=== PATIENT | male | born 1945 | race Caucasian/White ===

== ENCOUNTER → 2018-07-09 | Outpatient (CLI) | payer BC ==
[~2018-07-09] MED LIST: ADVIN25/60 INH; ASPCH81X PO; CHOL2000 PO; DICL-201 PO; NRV/5 PO; TIOTCAP INH; VNTHFA/IN INH
--- NOTE | 2018-07-09 12:01 | DIAGNOSTIC IMAGING REPORT ---
CHEST 2 VIEWS ROUTINE CLINICAL HISTORY: Preoperative evaluation. COMPARISON STUDY: Chest radiograph October 23, 2016. FINDINGS: Mild lung hyperexpansion is noted with flattening of the hemidiaphragms. Spinal fusion hardware is partially imaged. Linear bilateral opacities represent atelectasis or scarring. There is no pneumothorax or pleural effusion. Slight interstitial prominence is likely chronic. There is no evidence for pulmonary edema or pneumonia. Mild cardiomegaly is noted. IMPRESSION: 1. No acute cardiopulmonary findings. 2. Mild cardiomegaly. 3. Mild lung hyperexpansion. Electronically signed by: Kiko Cameron M.D. 07/09/2018 12:00 PM Dictated Date/Time: 07/09/2018 11:58 AM
[2018-07-09 13:24] LABS: BASO % 0.4 %; BASO ABS # 0.03 K/uL (0-0.2); EOS % 2.3 %; EOS ABS # 0.16 K/uL (0-0.5); HEMATOCRIT 46.6 % (42-52); IG# 0.02 K/uL (0.00-0.02); LYMPH % 17.6 %; LYMPH ABS # 1.24 K/uL (1.2-3.4); MEAN CELL VOLUME 92.8 fL (80-100); MEAN CORPUSCULAR HEMOGLOBIN 31.9 pg (25-34); MEAN CORPUSCULAR HGB CONC 34.3 g/dl (32-36); MEAN PLATELET VOLUME 9.3 fL (7.4-10.4); MONO % 7.1 %; NEUT % 72.3 %; NEUT ABS # 5.08 K/uL (1.4-6.5); PLATELET COUNT 193 K/uL (130-400); RED CELL DISTRIBUTION WIDTH CV 14.2 % (11.5-14.5); RED CELL DISTRIBUTION WIDTH SD 48.1 fL (36.4-46.3); WHITE BLOOD COUNT 7.03 K/uL (4.8-10.8)
[2018-07-09 13:42] LABS: PTT PATIENT 26.8 SECONDS (21.0-31.0)
[2018-07-09 14:36] LABS: BLOOD UREA NITROGEN 20 mg/dl (7-18); CALCIUM 8.9 mg/dl (8.5-10.1); CARBON DIOXIDE 28 mmol/L (21-32); CREATININE 0.92 mg/dl (0.60-1.40); GLUCOSE 105 mg/dl (70-99); SODIUM 140 mmol/L (136-145)
== END | disposition home or self-care (01) ==
LOC: C.CPL 10:52
PROVIDERS: ATTEND Orthopaedic Surgery Sports Medicine
DX: Z01.818 Encounter for other preprocedural examination (principal)

== ENCOUNTER 2021-02-13 05:04 | Inpatient (IN) ==
--- NOTE | 2021-02-01 10:31 | Anesthesiology Consultation ---
Date of Service February 01, 2021 Assessment & Plan (1) Encounter for pre-operative examination: - COVID screening: Per assessment on 01/31: Travel screen- Lives in [facility]. No travel x 2+ weeks (prior travel to [facility] to visit daughter 2+ weeks ago). Patient was personally COVID positive 09/28/20- symptoms at time were body aches, dyspnea, mild fever > recovered to baseline. No known COVID-19 positive contacts or current COVID-19 related symptoms. Surgeon arranging preop COVID testing. Awaiting results. - PCP office visit: 11/20/20: Patient seen for preop recommendations for upcoming total hip replacement. Patient will be referred to hosted services analyst and after school program assistant for preoperative clearance." - Chest CT: 10/17/20: Central lobar emphysema. Bibasilar atelectasis. No acute pulmonary disease. - Pulmonary office visit: 10/17/20: "From a Pulmonary standpoint, he can proceed with plans for total hip arthroplasty. He is at an increased risk for perioperative pulmonary complications but this risk is not prohibitive." - Cardiology office visit: 12/12/20: "Patient is very limited in his activity.. he has to walk with a cane.. Clinically is appears his cardiac status is stable.. his EKG is unremarkable.. I will check echocardiogram to assess the LV function and valvular structures.. if good EF.. no wall motion abnormalities or valvular heart disease.. patient is cleared for the surgery from a cardiac standpoint.. he will be low cardiac risk." ECHO done 12/14/20 (EF 60%, no RWMA or significant valvular disease) - ASA instructions per surgeon/prescriber Chart Review Chart Review: Acceptable Risk for Surgery (pending evaluation AM DOS) and Patient NOT seen in Pre Admission Testing History Surgery Operation Date: 02/13/21 08:50 Proposed Procedures p Left Total Hip Arthroplasty - Rafael Owens DO Height/Weight Height: 6 ft 2 in Weight: 129.727 kg Allergies Allergy/AdvReac Type Severity Reaction Status Date / Time atorvastatin AdvReac Intermediate myalgias Verified 01/31/21 11:51 Medications Home Medications Medication Instructions Recorded Confirmed Last Taken amlodipine 5 mg PO QAM #0 12/08/14 01/31/21 07/29/18 04:00 cholecalciferol (vitamin D3) 2,000 unit PO QAM 90 Days #90 cap 11/22/15 01/31/21 07/29/18 08:00 aspirin 81 mg PO PM #0 06/29/18 01/31/21 07/23/18 albuterol sulfate 1 inh INHALATION QID PRN 11/16/20 01/31/21 Unknown [id number] 1 inh INHALATION QAM 11/16/20 01/31/21 Unknown [Trelegy Ellipta] Potassium Otc 2 tab PO BID 01/31/21 01/31/21 Unknown ibuprofen 800 mg PO TID PRN 01/31/21 01/31/21 Unknown Past Medical History Medical History BPH (benign prostatic hyperplasia) Chronic back pain Chronic obstructive pulmonary disease stable History of COVID-19 dx 09/28/20 ([facility]), body aches, dyspnea, mild fever > recovered to baseline Obesity On home oxygen therapy 3L/MIN NC PRN (uses often) Osteoarthritis Past Surgical History Surgical History H/O colonoscopy H/O hemorrhoidectomy History of cardiac cath 2012 (for abnormal stress test) > no stents History of herniorrhaphy History of repair of rotator cuff Left History of tooth extraction History of total hip arthroplasty R MARYELLEN, plus revision Previous back surgery L2-L3 decompression/fusion L1-L2 decomp, T12-L2 fusion (2015) S/P TURP Social History Smoking Status: Former smoker tobacco type: cigarettes Do You Dip or Chew Tobacco: No Smoking End Date: 2007 Hx Alcohol Use: Yes Alcohol type: beer, wine and hard liquor alcohol intake frequency: a few times a week Hx Substance Use: No substance use type: does not use Testing Laboratory Results 01/29/21 WBC 5.9 H/H 16.1/47.8 PLATELETS 180 SODIUM 141 POTASSIUM 3.8 CHLORIDE 105 CO2 32 BUN 18 CREATININE 0.9 GLUCOSE 92 HGBA1C 5.7% PT 10.5 PTT 24 INR 1.05 UA negative Electrocardiogram Date: 12/14/20 SR at 75bpm. Chest X-Ray Date: 11/22/20 FINDINGS: The heart is the upper limits of normal in size. There is subtle nonspecific interstitial thickening. This could represent mild pulmonary vascular congestion or a subtle interstitial infectious/inflammatory process. There is stable hilar prominence. There is no focal pulmonary consolidation. IMPRESSION: Subtle nonspecific interstitial thickening. No evidence of focal pulmonary consolidation Echocardiogram Date: 12/14/20 EF 60%. No RWMA. No significant valvular disease. Stress Test Date: 02/22/13 Type: nuclear Resting EF: 64 There is slightly decreased activity in the inferior wall myocardium during stress. This was normally perfused at rest. The remainder of the myocardium is normally perfused and the ventricular chamber is not dilated. On the gated images there is suggestion of mildly diminished wall motion in the inferior wall. The remainder of the myocardium moves normally. Subsequent cardiac cath done 03/01/13 revealing normal coronary arteries* Cardiac Catheterization Date: 03/01/13 Angiographically normal coronary arteries. EF 55%. Risk factor modification recommended.
--- NOTE | 2021-02-10 09:09 | History & Physical Report ---
Date of Service February 13, 2021 Assessment & Plan (1) Degenerative joint disease of left hip: I have indicated the patient for left total hip replacement. The risks, benefits and complications of surgery were explained to the patient which include but not limited to infection, acute blood loss, DVT/PE, injury to nerves, vessels, bone, soft tissue, arthrofibrosis, chronic pain, failure of the prosthesis, hip dislocation, leg length discrepancy, need for additional surgery, cardiac and pulmonary events and . The patient wished to proceed with surgery and informed consent was obtained at this time. We will plan for 81mg ASA BID post-operatively for DVT prophylaxis. Upon discharge the patient will be discharged home with home health services. Appropriate clearances by PCP, cardiology were obtained. History of Present Illness Chief Complaint: Left hip pain/DJD Primary Care Provider: Julieta Humphries The patient is a 75 year old male who presents with complaints of severe left hip pain and DJD. The patient has failed outpatient conservative treatments to this point which included NSAIDs, activity modification, home exercise/walking program. The patient's pain and limited function have progressed to the point where they severely hinder their activities of daily living and they no longer tolerate exercise programs. They are requesting to proceed with total hip replacement surgery. Allergies Allergy/AdvReac Type Severity Reaction Status Date / Time atorvastatin AdvReac Intermediate myalgias Verified 02/13/21 05:44 Home Medications Medication Instructions Recorded Confirmed Type amlodipine 5 mg PO QAM #0 12/08/14 02/13/21 History cholecalciferol (vitamin D3) 2,000 unit PO QAM 90 Days #90 cap 11/22/15 02/13/21 History aspirin 81 mg PO PM #0 06/29/18 02/13/21 History albuterol sulfate 1 inh INHALATION QID PRN 11/16/20 02/13/21 History [id number]-[id number] 1 inh INHALATION QAM 11/16/20 02/13/21 History [Trelegy Ellipta] Potassium Otc 2 tab PO BID 01/31/21 02/13/21 History ibuprofen 800 mg PO TID PRN 01/31/21 02/13/21 History Past Med/Surg History Medical History BPH (benign prostatic hyperplasia) Chronic back pain Chronic obstructive pulmonary disease stable History of COVID-19 dx 09/28/20 ([facility]), body aches, dyspnea, mild fever > recovered to baseline Obesity On home oxygen therapy 3L/MIN NC PRN (uses often) Osteoarthritis Surgical History H/O colonoscopy H/O hemorrhoidectomy History of cardiac cath 2012 (for abnormal stress test) > no stents History of herniorrhaphy History of repair of rotator cuff Left History of tooth extraction History of total hip arthroplasty R MARYELLEN, plus revision Previous back surgery L2-L3 decompression/fusion L1-L2 decomp, T12-L2 fusion (2015) S/P TURP Social History Smoking Status: Former smoker Smoking End Date: 2007; Second Hand Exposure: Yes ("EVERYBODY SMOKED"); Do You Dip or Chew Tobacco: No; Hx Alcohol Use: Yes Alcohol type: beer, wine and hard liquor Hx Substance Use: No Preferred Language: Greenlandic Communication Ability: Effective Drilling Engineering Manager Required: No Beliefs That Will Affect Care: None marital status: Current Living Situation: Spouse Other Information That Helps Us Care for You: No Feels Safe at Home: Yes Safety Concerns: Feels Safe At This Time Assistive Devices: Cane, Denture - Upper, Denture - Lower, Glasses and Oxygen - Continuous Review of Systems Review of Systems: All systems reviewed & are unremarkable except as noted in HPI & below Constitutional: as per Subjective / HPI Physical Exam Physical Exam: LLE NVSI +EHL/FHL/TA/GS SILT grossly, +2 DP pulse, compartments soft NT, limited painful ROM of the hip, antalgic gait. Constitutional: WD/WN, vitals as above Eyes: PERRL, conjunctivae normal, anicteric sclerae ENMT: external ear and nose normal, oropharynx normal Neck: trachea midline, no thyromegaly Respiratory: normal respiratory effort, lungs clear to auscultation Cardiovascular: RRR, no murmur, no edema Gastrointestinal (Abdomen): normal bowel sounds, soft, nontender, no hepatosplenomegaly Musculoskeletal: no cyanosis or clubbing, extremities motor strength 5/5 Skin: no rashes, warm and dry Neurologic: patellar DTR's 2+ bilat, sensation intact Psychiatric: A+Ox3, euthymic affect Lymphatic: no cervical or axillary lymphadenopathy Results & Data Results & Data ([facility]) Diagnostic Findings Multiple views of the hip demonstrates severe DJD with complete loss of the joint space. +osteophytes, +sclerosis, +subchondral cysts.
[2021-02-13] MEDS ORDERED: METOCLOPRAMIDE HCL 10 MG TABLET PO SCH (06:00)
[2021-02-13] MEDS ORDERED: ACETAMINOPHEN 500 MG TAB PO SCH (06:00)
[2021-02-13] MEDS ORDERED: GABAPENTIN 300 MG CAP PO SCH (06:00)
[2021-02-13] MEDS ORDERED: LR 500ML BOLUS, THEN 15ML/HR IV SCH (06:00)
[2021-02-13] MEDS ORDERED: FAMOTIDINE 20 MG TAB PO SCH (06:00)
[2021-02-13] MEDS ORDERED: CeleBREX 200 MG CAP PO SCH (06:00)
[2021-02-13] MEDS ORDERED: TRANEXAMIC ACID 1,000 MG **IV Pre-op IV SCH (06:00)
[2021-02-13] MEDS ORDERED: ROPIVACAINE 0.5% HCL/PF 150 MG, BUPIVACAINE 0.75% MPF 20 ML, EPINEPHrine 30MG/30ML (OR ... INFIL SCH (06:00)
[2021-02-13] MEDS ORDERED: dexAMETHasone 4 MG TAB PO SCH (06:00)
[2021-02-13] MEDS ORDERED: TRANEXAMIC ACID 1,000 MG **IV Intra-op IV SCH (06:00)
[2021-02-13] MEDS ORDERED: BUPIVACAINE 0.5 % 5 MG/1 ML PF 10ML VIAL ONE (06:21)
[2021-02-13] MEDS ORDERED: MIDAZOLAM HCL 1 MG/ML 2ML VIAL ONE (06:23)
[2021-02-13] MEDS ORDERED: fentaNYL citrate 100 MCG/2 ML VIAL ONE (06:23)
[2021-02-13] MEDS ORDERED: ORTHO JOINT ANESTHETIC ONE (06:43)
[2021-02-13] MEDS ORDERED: BACITRACIN INJ 50,000 UNIT VIAL ONE (06:44)
--- NOTE | 2021-02-13 06:45 | History & Physical Bridge Note ---
Date of Service February 13, 2021 History & Physical Bridge Note I have examined the patient, reviewed the History & Physical and in the interval since the performance of the History & Physical I have noted the following changes of clinical significance: no changes noted
[2021-02-13] MEDS ORDERED: ePHEDrine sulfate 50 MG/ML AMP IV PRN (07:10)
[2021-02-13] MEDS ORDERED: ONDANSETRON INJ 2 MG/ML 2 ML VIAL IV PRN ×2 (07:10→11:19)
[2021-02-13] MEDS ORDERED: fentaNYL citrate 100 MCG/2 ML VIAL IV PRN (07:10)
[2021-02-13] MEDS ORDERED: ATROPINE SULFATE 0.1 MG/ML 10ML SYR IV PRN (07:10)
[2021-02-13] MEDS ORDERED: SUCCINYLCHOLINE 100MG/5ML SYR IV ONE (07:42)
[2021-02-13] MEDS ORDERED: PROPOFOL IV EMULSION 10 MG/ML 20 ML VIAL IV ONE ×2 (07:42→07:44)
[2021-02-13] MEDS ORDERED: DEXAMETHASONE SOD INJ 4 MG/ML VIAL ONE (07:46)
[2021-02-13] MEDS ORDERED: ALBUTEROL HFA INHALER 8.5 GM ONE (07:46)
[2021-02-13] MEDS ORDERED: ONDANSETRON INJ 2 MG/ML 2 ML VIAL ONE (07:46)
[2021-02-13] MEDS ORDERED: ePHEDrine sulfate 50 MG/ML SYR ONE (07:58)
--- NOTE | 2021-02-13 09:23 | Post Operative Brief Note ---
Immediate Post Op Note v1 Date of Surgery February 13, 2021 Pre & Post Diagnosis Operation Date: 02/13/21 07:00 Pre-Op Diagnosis: Osteoarthritis Left Hip Post-Op Diagnosis: Osteoarthritis Left Hip I identified the patient and participated in the time-out.: Yes Procedure Operation Date: 02/13/21 07:00 Actual Procedures p Left Total Hip Arthroplasty(Left) - Rafael Owens DO Surgeon Rafael Owens DO Mattress Finisher Joseph Warner Estimated Blood Loss 275 Findings Consistent with Post-Op Diagnosis Fluids See anesthesia report Specimens Femoral head Drains Hemovac Drain (10fr dual) Anesthesia Type General Complications none Disposition Disposition: Recovery Room Overlapping Procedure I was present for: the critical portions of procedure. I was immediately available: during the entire case. Back up surgeon: was not required during procedure.
--- NOTE | 2021-02-13 09:26 | Operative Report ---
Post Operative Report Pre & Post Diagnosis Operation Date: 02/13/21 07:00 Pre-Op Diagnosis: Osteoarthritis Left Hip Post-Op Diagnosis: Osteoarthritis Left Hip I identified the patient and participated in the time-out.: Yes Procedure Operation Date: 02/13/21 07:00 Actual Procedures p Left Total Hip Arthroplasty(Left) - Rafael Owens DO Surgeon Rafael Owens DO Saw Feeder Joseph Warner Estimated Blood Loss 275 Findings Consistent with Post-Op Diagnosis Fluids See anesthesia report Specimens Femoral head Drains Hemovac drain deep to fascia Anesthesia Type General Complications none Disposition Disposition: Recovery Room Indications The patient is a 71-year-old man who presents with severe progressive left hip DJD who has failed outpatient conservative treatments. I indicated the patient for a total hip replacement and the risks and benefits were explained in detail which included but not limited to infection, bleeding, blood clot, damage to surrounding bone, nerves, vessels, soft tissue, hip dislocation, failure of the prosthesis, leg length discrepancy, need for additional surgery and . The patient agreed to proceed with replacement of the hip and informed consent was obtained. Appropriate clearances were obtained. Description of Procedure COMPONENTS USED: Alex Biomet hip system: Acetabulum size 58 G7 osteo-Ti, Avenir femur size 7 standard offset, femoral head 36-3.5, liner 58x36, acetabular screw 30 mm x 1. Following induction of adequate spinal anesthesia, the patient was transferred to the OR table and placed in lateral decubitus position with right hip down. The left hip was prepped and draped in the typical sterile fashion. A timeout was performed, patient identified and site david confirmed. Appropriate antibiotics were given. A standard posterolateral/Alma-Langenbeck incision was made. Subcutaneous tissue was sharply dissected. Electrocautery was utilized for hemostasis. The fascia was incised throughout the length of the wound and retracted with the Charnley retractor. The bursa was taken down and the short external rotators were identified. The piriformis was tagged with #1 Vicryl. The short external rotators and capsule were divided from the posterior aspect of the femur using electrocautery. The posterior capsule was tagged with #1 Vicryl. Both external rotators and posterior capsule were swept posterior and protected, along with protecting the sciatic nerve. The hip was dislocated by flexion and internally rotation in a controlled manner and exposure of the femoral neck was gained with an old-style Hohmann and a blunt cobra retractor. A femoral cutting guide was utilized for making the appropriate level femoral neck cut with reciprocating saw. The femoral head was removed, measured and reserved on the back table. Next, attention was turned to the acetabulum. A posterior and anterior offset retractor was placed to gain adequate exposure. Acetabular labrum as well as posterior capsule elements were removed using electrocautery and forceps. Fovea centralis was cleared of all soft tissue. Sequential reaming was performed starting at 46 mm and carried up to a 57 mm and decision was made to proceed with impaction of a 58 mm G7 Osteo-Ti cup. This was impacted and held using a single 30 mm acetabular screw. The trial acetabular liner was placed at this time. Next, attention was turned to the proximal femur where a Bovie and pickup was used to further clear short exte rnal rotators from their insertion on the femur. Box osteotome and canal finder was used to gain access to the femoral canal and the lateral reamer on power was used to further open the proximal lateral canal. Sequentially rasping was carried up to a 9 which gave good fit and fill of the proximal femur. A trial reduction was carried out with a standard offset femoral neck component a 36-3.5 mm femoral head. The trial reduction was stable in all degrees of rotation with no [id number] impingement. The hip was dislocated, trial components were removed and access to the acetabulum was re-established. The trial liner was removed and the cup was irrigated to ensure all debris was removed. The final acetabular liner was inserted and properly seated in the cup. Access to the femur was once more gained and the size 9 femoral stem with standard offset was impacted into position. The hip was once more assessed with the 36-3.5 mm femoral head. Stability was accessed and found to be excellent with equal leg lengths. The hip was dislocated for the last time and the final 36-3.5 ceramic femoral head was impacted in place and the hip was reduced. Range of motion was checked once again and found to be stable. A Betadine soak was performed. After 3 minutes, the hip was once more irrigated with copious sterile saline solution with bacitracin. The francine-incisional soft tissue was injected utilizing [place] ortho mix which includes a combination of Ropivicaine 0.5% 150mg, Bupivicaine 0.5%/Epinephrine 1:200,000 30ml, Toradol 30mg, Dexamethasone 4mg, Ketamine 10mg, Clonidine 100mcg and NSS 30ml Orthomix solution. The piriformis, external rotators and capsule were repaired to the greater trochanter through bone tunnels using #5 FiberWire. Hemovac drain was placed deep to fascia. The fascia was closed using #1 Vicryl, subcutaneous tissue was closed using 2-0 Vicryl, and skin was closed with sloan and a sterile dry dressing was applied which included Robyn incisional VAC, drain sponge, and tape The patient tolerated the procedure well and was transported to PACU in stable condition. Due to the complex nature of the procedure, the entire surgery was performed with the operational assistance of Joseph Warner PA-C. The surgeon assistant, under direct supervision, was involved in the actual performance of all aspects of the surgical procedure including patient positioning, hemostasis, tissue retraction, instrument management and wound closure. I attest to the content of the Intraoperative Record and any orders documented therein. Any exceptions are noted below.
--- NOTE | 2021-02-13 10:22 | XRay Report ---
XR hip 1V LT w pelvis HISTORY: 75 years-old Male IN PACU - A/P PELVIS and LATERAL HIP left hip total joint arthroplasty COMPARISON: CT abdomen and pelvis 10/29/2016 TECHNIQUE: AP view the pelvis with crosstable lateral view of the left hip FINDINGS: Bilateral hip total joint arthroplasties. The new left hip arthroplasty demonstrates satisfactory ali gnment without acute fracture. Expected postoperative soft tissue swelling and deep tissue air with s urgical drainage catheter. Posterior interbody otis and screw fusion with discectomy changes of the alfredo mbar spine and sacrum. IMPRESSION: Left hip total joint arthroplasty with expected postoperative changes. ACT 112: Negative or not required by law. The above report was generated using voice recognition software. It may contain grammatical, syntax o r spelling errors. Electronically signed by: Guanako Beck M.D. 02/13/2021 10:20 AM
[2021-02-13] MEDS ORDERED: diphenhydrAMINE Capsule 25 MG CAP PO PRN (11:19)
[2021-02-13] MEDS ORDERED: bisacodyL 10 MG SUPP PR PRN (11:19)
[2021-02-13] MEDS ORDERED: ALBUTEROL HFA 8 GM INHALER INH PRN (11:19)
[2021-02-13] MEDS ORDERED: MAGNESIUM HYDROXIDE SUSP 30 ML UDC PO PRN (11:19)
[2021-02-13] MEDS ORDERED: METOCLOPRAMIDE HCL INJ 5 MG/ML 2 ML VIAL IV PRN (11:19)
[2021-02-13] MEDS ORDERED: NALOXONE HCL 0.4 MG/1 ML VIAL/CARP IV PRN (11:19)
[2021-02-13] MEDS: HYDROmorphone INJ 0.5 MG/0.5 ML SYR IV PRN ×3 (11:49→23:37)
[2021-02-13] MEDS: oxyCODONE HCL IR 5 MG TAB (IMMEDIATE RELEASE) PO PRN ×2 (13:53→19:51)
[2021-02-13] MEDS: ACETAMINOPHEN 500 MG TAB PO SCH ×2 (13:53→21:58)
[2021-02-13] MEDS: SODIUM CHLORIDE 0.9% 1000ML 1,000 ML IV SCH ×2 (13:54→23:49)
[2021-02-13] MEDS: ceFAZolin 2000MG 2,000 MG/15 ML SYR IV SCH ×2 (16:12→23:37)
--- NOTE | 2021-02-13 17:32 | Anesthesiology Progress Note ---
Date of Service February 13, 2021 Anesthesia Post Procedure Vital Signs Vital Signs: Temp Pulse Pulse Resp BP BP Pulse Ox 02/13/21 15:46 36.6 C 74 16 142/70 H 90 02/13/21 14:00 76 14 128/67 93 02/13/21 13:00 36.4 C L 74 15 126/69 93 02/13/21 12:00 72 15 126/61 93 02/13/21 11:30 64 14 130/66 93 02/13/21 11:00 36.4 C L 70 14 116/67 92 02/13/21 10:45 71 13 117/64 94 02/13/21 10:30 36.4 C L 70 12 125/58 L 94 02/13/21 10:20 79 14 140/64 94 02/13/21 10:10 84 17 131/59 L 99 02/13/21 10:00 78 13 117/67 97 02/13/21 09:53 36.2 C L 83 14 139/69 99 02/13/21 05:46 36.8 C 69 20 141/71 H 95 Pain Intensity Left Hip: Pain Intensity: 5 Transfer of Care Handoff Completed per policy Notes Mental Status: alert / awake / arousable and participated in evaluation Patient Amnestic to Procedure: Yes Nausea / Vomiting: adequately controlled Pain: adequately controlled Airway Patency, RR, SpO2: stable & adequate BP & HR: stable & adequate Hydration State: stable & adequate Neuraxial Anesthesia: was administered and sensory block is resolving Anesthetic Complications: no major complications apparent and Pt Satisfied with anesthetic care
--- NOTE | 2021-02-13 19:29 | Orthopedic Progress Note ---
Date of Service February 13, 2021 Assessment & Plan (1) Degenerative joint disease of left hip: s/p left MARYELLEN -ancef -DVT ppx: SCDs, TEDs, 81mg ASA BID -WBAT LLE -PT/OT -PO XR demonstrates a well aligned well fixed prothesis without fracture/dislocation -am labs -DC planning Admission and Anticipated Discharge Date Admission Date: February 13, 2021 Subjective Post Operative Progress Note Patient seen sitting in chair at bedside, comfortable, denies complaints, pain well controlled, no acute issues. Review of Systems Review of Systems: All systems reviewed & are unremarkable except as noted in HPI & below Constitutional: as per Subjective / HPI Physical Exam Physical Exam: LLE NVSI +EHL/FHL/TA/GS SILT grossly, +2 DP pulse, compartments soft NT, dressing cdi. Constitutional: WD/WN, vitals as above Results & Data ([facility]) Vital Signs (Past 12 Hours) Vital Signs Temp Pulse Pulse Resp BP BP Pulse Ox 02/13/21 15:46 36.6 C 74 16 142/70 H 90 02/13/21 14:00 76 14 128/67 93 02/13/21 13:00 36.4 C L 74 15 126/69 93 02/13/21 12:00 72 15 126/61 93 02/13/21 11:30 64 14 130/66 93 02/13/21 11:00 36.4 C L 70 14 116/67 92 02/13/21 10:45 71 13 117/64 94 02/13/21 10:30 36.4 C L 70 12 125/58 L 94 02/13/21 10:20 79 14 140/64 94 02/13/21 10:10 84 17 131/59 L 99 02/13/21 10:00 78 13 117/67 97 02/13/21 09:53 36.2 C L 83 14 139/69 99
[2021-02-13] MEDS: DOCUSATE SODIUM 100 MG CAP PO SCH (19:52)
[2021-02-13] MEDS ORDERED: SENNA 8.6 MG TAB PO SCH (21:00)
[2021-02-14] MEDS: ACETAMINOPHEN 500 MG TAB PO SCH ×2 (06:06→14:53)
[2021-02-14] MEDS: oxyCODONE HCL IR 5 MG TAB (IMMEDIATE RELEASE) PO PRN ×3 (06:10→15:36)
[2021-02-14 06:19] LABS: Hematocrit (blood only) 34.3 % (42-52); Hemoglobin 11.9 g/dL (14.0-18.0); Immature Granulocytes # (auto) 0.02 K/uL (0.00-0.02); Immature Granulocytes % (auto) 0.1 %; Lymphocytes # (auto) 0.99 K/uL (1.2-3.4); Lymphocytes % (auto) 7.4 %; Mean Corpuscular Hemoglobin 31.2 pg (25-34); Mean Corpuscular Hgb Conc 34.7 g/dL (32-36); Mean Platelet Volume 8.9 fL (7.4-10.4); Monocytes # (auto) 0.68 K/uL (0.11-0.59); Monocytes % (auto) 5.1 %; Neutrophils # (auto) 11.66 K/uL (1.4-6.5); Neutrophils % (auto) 87.4 %; Platelet Count 187 K/uL (130-400); RDW Coefficient of Variation 13.6 % (11.5-14.5); RDW Standard Deviation 45.2 fL (36.4-46.3); Red Blood Count 3.81 M/uL (4.7-6.1); White Blood Count 13.35 K/uL (4.8-10.8)
[2021-02-14 06:47] LABS: BUN Creatinine Ratio 25.1 (10-20); Calcium 7.9 mg/dl (8.5-10.1); Creatinine Clr Calc Pharmacy 90.1 ml/min; Est GFR (African American) 83.5; Est GFR (Non-African American) 72.1; Potassium 4.4 mmol/L (3.5-5.1)
[2021-02-14] MEDS ORDERED: amLODIPine BESYLATE 5 MG TAB PO SCH (09:00)
[2021-02-14] MEDS ORDERED: MULTIVITAMIN TAB PO SCH (09:00)
[2021-02-14] MEDS ORDERED: UMECLIDINIUM/VILANTEROL 62.5/25MCG 7 PUFFS/INHALER INH SCH (09:00)
[2021-02-14] MEDS ORDERED: FLUTICASONE FUROATE 100MCG 14 PUFFS/INHALER INH SCH (09:00)
[2021-02-14] MEDS ORDERED: ASPIRIN 81 MG ECTAB PO SCH (09:00)
[2021-02-14] MEDS: DOCUSATE SODIUM 100 MG CAP PO SCH (09:08)
--- NOTE | 2021-02-14 10:52 | Orthopedic Progress Note ---
Date of Service February 14, 2021 Assessment & Plan (1) Degenerative joint disease of left hip: s/p left MARYELLEN POD#1 -ancef -DVT ppx: SCDs, TEDs, 81mg ASA BID -WBAT LLE -PT/OT -PO XR demonstrates a well aligned well fixed prothesis without fracture/dislocation -am labs - as above, hgb 11.9 -Drain fell out overnight, drain site cdi. -DC planning - home with Admission and Anticipated Discharge Date Admission Date: February 13, 2021 Subjective Post Operative Progress Note Patient seen sitting up in bed, comfortable, denies complaints, pain well controlled, no acute issues. Denies F/C/N/V/SOB/CP. Review of Systems Review of Systems: All systems reviewed & are unremarkable except as noted in HPI & below Constitutional: as per Subjective / HPI Physical Exam Physical Exam: LLE NVSI +EHL/FHL/TA/GS SILT grossly, +2 DP pulse, compartments soft NT, dressing cdi. Constitutional: WD/WN, vitals as above Results & Data ([facility]) Vital Signs (Past 12 Hours) Vital Signs Temp Pulse Pulse Resp BP BP Pulse Ox 02/14/21 09:00 64 126/62 02/14/21 07:51 36.6 C 62 16 113/46 L 94 02/14/21 03:29 36.7 C 69 18 115/61 92 02/13/21 23:50 36.1 C L 74 18 140/71 91 Laboratory Results 02/14/21 02/14/21 02/14/21 Range/Units 06:03 06:03 06:03 WBC 13.35 H (4.8-10.8) K/uL RBC 3.81 L (4.7-6.1) M/uL Hgb 11.9 L (14.0-18.0) g/dL Hct 34.3 L (42-52) % MCV 90.0 (80-100) fL MCH 31.2 (25-34) pg MCHC 34.7 (32-36) g/dL RDW Std Deviation 45.2 (36.4-46.3) fL RDW Coeff of Richie 13.6 (11.5-14.5) % Plt Count 187 (130-400) K/uL MPV 8.9 (7.4-10.4) fL Immature Gran % (Auto) 0.1 % Neut % (Auto) 87.4 % Lymph % (Auto) 7.4 % [place] % (Auto) 5.1 % Eos % (Auto) 0.0 % Baso % (Auto) 0.0 % Neut # (Auto) 11.66 H (1.4-6.5) K/uL Lymph # (Auto) 0.99 L (1.2-3.4) K/uL [place] # (Auto) 0.68 H (0.11-0.59) K/uL Eos # (Auto) 0.00 (0-0.5) K/uL Baso # (Auto) 0.00 (0-0.2) K/uL Immature Gran # (Auto) 0.02 (0.00-0.02) K/uL Sodium 138 (136-145) mmol/L Potassium 4.4 (3.5-5.1) mmol/L Chloride 107 (98-107) mmol/L Carbon Dioxide 28 (21-32) mmol/L Anion Gap 3.0 (3-11) BUN 26 H (7-18) mg/dl Creatinine 1.02 (0.6-1.4) mg/dl Est Cr Clr Drug Dosing 90.1 ml/min Est GFR ( Amer) 83.5 Est GFR (Non-Af Amer) 72.1 BUN/Creatinine Ratio 25.1 H (10-20) Glucose 180 H (70-99) mg/dl Calcium 7.9 L (8.5-10.1) mg/dl Hepatitis C Ab Screen Neg (Neg)
--- NOTE | 2021-02-14 20:37 | Discharge Summary ---
Date of Service February 14, 2021 Admission HPI Per Admitting Provider The patient is a 75 year old male who presents with complaints of severe left hip pain and DJD. The patient has failed outpatient conservative treatments to this point which included NSAIDs, activity modification, home exercise/walking program. The patient's pain and limited function have progressed to the point where they severely hinder their activities of daily living and they no longer tolerate exercise programs. They are requesting to proceed with total hip replacement surgery. Principal Diagnosis Left total hip replacement Discharge Exam LLE NVSI +EHL/FHL/TA/GS SILT grossly, +2 DP pulse, compartments soft NT, dressing cdi. Constitutional WD/WN, vitals as above Discharge Data Allergies Allergy/AdvReac Type Severity Reaction Status Date / Time atorvastatin AdvReac Intermediate myalgias Verified 02/13/21 05:44 Procedures Performed Operation Date: 02/13/21 07:00 Actual Procedures p Left Total Hip Arthroplasty(Left) - Rafael Owens DO Hospital Course (1) Degenerative joint disease of left hip: The patient is a 75 -year-old female who presents with long standing history of severe left hip DJD and failed outpatient conservative treatments. The patient's symptoms have progressed to the point where it has been difficult to perform even normal activities of daily living. I indicated the patient for a left total hip arthroplasty, the risks, benefits and complications of the procedure include but not limited to infection, bleeding, damage to bone, nerves, vessels, surrounding soft tissue, may develop blood clots, loss of function, leg length discrepancy, dislocation, failure of the components, loosening of the components, the need for additional surgery and . The patient wished to proceed with surgery at this time and informed consent was obtained. Hospital Course: On 02/13/21 the patient was taken to the operating room, adequate anesthesia administered and underwent a left total hip arthroplasty. The patient tolerated the procedure well and was taken to the PACU in stable condition. Post-op eratively the patient was started on a DVT ppx medication and given appropriate IV antibiotics. Consults were placed to physical therapy, occupational therapy and case management. On POD#1, the patient did well overnight and their pain was well controlled. Labs were drawn and the Hgb was 11.9. The patient progressed well with PT. Dressings were changed at this time and the incision was clean, dry and intact. The patients hospital stay was relatively uneventful and they were deemed stable by the orthopedic team and consultants to be discharged home with HH on 02/14/21. Discharge Instructions: Upon discharge the patient may weight bear as tolerates through their operative extremity. They were instructed to keep the incision clean and dry at all times. The patient may shower but should not submerge the incision, avoid bathing, pools and hot tubs. The patient was given a script for pain medication and should take as instructed. The patient was given a script for DVT ppx 81mg ASA BID and should take as directed. The patient was instructed to not drive or travel for long distances until cleared to do so. If the patient develops any symptoms of fevers, chills, nausea, vomiting, increased redness, swelling, pain or drainage from the surgical site, they should notify the office and/or proceed to the nearest emergency room. The patient should follow up in 10-14 days after surgery for their routine post-operative follow-up appointment and should call the office, to confirm the date and time. s/p left MARYELLEN POD#1 -ancef -DVT ppx: SCDs, TEDs, 81mg ASA BID -WBAT LLE -PT/OT -PO XR demonstrates a well aligned well fixed prothesis without fracture/dislocation -am labs - as above, hgb 11.9 -Drain fell out overnight, drain site cdi. -DC planning - home with Total Time Total Time Spent Total Time Spent (In Minutes): 30 Discharge Plan Discharge Items Patient Disposition: Home - Home Health Services Reason For Visit: Osteoarthritis Left Hip Discharge Diagnosis: Left anterior total hip replacement Condition on Discharge: Good Activity: Per Instructions section Lifting: Wait until after follow-up appointment Bathing: Keep incision dry Bathing Comment: No bathing, pools or hot tubs. Sexual Activity: Wait until after follow-up appointment Exercise/Sports: Wait until after follow-up appointment Driving/Machine Use: No driving. Weightbearing: Full weightbearing Non-emergency contact: Primary Care Provider and Surgeon Call non-emergency contact if: you have any medication questions, your symptoms worsen, your pain is not controlled, your pain is worsening, your pain is unusual for you, your pain is concerning for you, you have a fever, your temperature is above 101, your wound has increased redness, your wound has increased drainage and your wound pain has increased Follow-up/Referrals: Julieta Humphries [Primary Care Provider] - (Your former PCP office has informed [place] that you have transferred to [facility]. Please schedule a follow up appt with your new PCP.) Diet: Regular Addtl Attending Provider Instructions: ACTIVITY RECOMMENDATIONS: SELF CARE INSTRUCTIONS AFTER TOTAL HIP REPLACEMENT : Direct Anterior Approach Until the incision and soft tissues around your hip have healed, there is a possibility that the hip prosthesis could dislocate. A. Hip flexion ( Up & Down out of chair or steps ) may be difficult. This is normal. B. Numbness in front of the thigh is also normal for a few weeks. C. Use hand rails when walking on stairs. D. Wear low heeled shoes with non-slip soles. E. Be sure that your floors are free of things that could trip you - throw rugs, electrical cords, small objects. Avoid wet and waxed floors, especially with crutches and canes. F. Try to walk several times a day with rest periods between. G. Continue with all the exercises taught to you in the hospital. Again, make walking a part of your daily routine. SPECIAL CARE INSTRUCTIONS: VERY IMPORTANT TO READ AND REVIEW A. You may still be at risk for phlebitis and blood clots. 1. Wear surgical stockings (MIKE hose) for 2 weeks after surgery to improve circulation and reduce swelling. 2. Take Aspirin 81mg twice daily for 4 weeks or as directed by your doctor. This is your blood thinner. 3. High risk patients may be prescribed a stronger blood thinner if necessary. 4. If you are on Coumadin normally, your family doctor/levelman should monitor your blood work. Expect a phone call the day of or the day after bloodwork is drawn to adjust your dosage. B. You must take antibiotics before having dental work, bladder, bowel and other surgery. Your doctor will provide you with a permanent card to carry describing precautions. C. Call [facility] [address] if you have a fever, redness or swelling around the incision, cloudy drainage from incision, or sudden increase in pain in your hip, not relieved by your regular pain medication. D. Please call the office at if you have any concerns or questions about your operation or recovery. * YOU MAY SHOWER, NO TUB BATHS UNTIL CLEARED BY YOUR DOCTOR. - Keep an extra close eye on the top portion of your incision. Be sure to keep clean & dry. * WEAR MIKE HOSE 20 HOURS PER DAY FOR 2 WEEKS. * YOU MAY PROGRESS FROM A WALKER, TO A CANE, TO INDEPENDENT AT YOUR OWN PACE. * MOST PATIENTS WILL HAVE HOME NURSING FOR THERAPY. IF YOU DECIDE TO DO OUTPATIENT PHYSICAL THERAPY, PLEASE SCHEDULE THIS 3 TIMES PER WEEK. *PREVENA incisional vac is a special dressing covering your incision. This dressing provides a sterile dry environment while you are healing. The dressing is to be left in place for 7 days post-operatively. Your home nurse or surgeon will remove. If you develop any redness or blisters or have any questions notify your surgeon immediately. FOLLOW UP VISIT: If appointment is not already scheduled: Please call [facility] [address] [address] to make a follow-up appointment for 2 weeks after your surgery at . Pending Studies at Discharge: No Stand-Alone Forms: My [facility] UEIS, Opioid Pain Management, Smoking Cessation Medications and DC Order Prescriptions: New aspirin 81 mg Tablet,Delayed Release (Dr/Ec) 81 mg PO BID Qty: 56 RF: 0 acetaminophen 500 mg Tablet 1,000 mg PO Q8 PRN (Reason: Pain/Fevers) Qty: 90 RF: 0 oxycodone 5 mg Tablet 5 mg PO Q6H MDD 4 PRN (Reason: pain) Qty: 30 RF: 0 sennosides [Senokot] 8.6 mg Tablet 17.2 mg PO HS PRN (Reason: constipation) Qty: 28 RF: 0 Continued amlodipine 5 mg Tablet 5 mg PO QAM Qty: 0 RF: 0 cholecalciferol (vitamin D3) 2,000 unit Capsule 2,000 unit PO QAM 90 Days Qty: 90 RF: 3 albuterol sulfate 90 mcg/actuation Hfa Aerosol Inhaler 1 inh INHALATION QID PRN (Reason: Wheezing) RF: 0 Trelegy Ellipta 100-62.5-25 mcg Blister With Device 1 inh INHALATION QAM RF: 0 Potassium Otc 2 tab PO BID RF: 0 Discontinued aspirin 81 mg Tablet,Chewable 81 mg PO PM Qty: 0 RF: 0 ibuprofen 800 mg Tablet 800 mg PO TID PRN (Reason: Pain) RF: 0 Discharge Orders: Discharge Order (Routine); Ordered 02/14/21 Ordered By: Rafael Nj/Other Patient Handouts: DVT Post Op Prevention Admission Data Admit Date/Time: 02/13/21 09:57 Attending Provider: Rafael Owens Admit Provider: Rafael Owens Primary Care Provider: Julieta Humphries Other Providers: [facility],Home Healthcare Other Interventions: Discharge Summary Assessment (RN) Last Done: 02/14/21 15:40
== END 2021-02-14 16:06 | disposition home health service (06) | DRG 470 ==
LOC: 3N 05:04 → ASU 05:04 → OBSVTOIN 09:57

== ENCOUNTER 2021-02-15 16:02 | Inpatient (IN) ==
--- NOTE | 2021-02-15 17:12 | Emergency Department Note ---
History of Present Illness General Chief complaint: Fall Stated complaint: FALLS, L HIP PAIN Time Seen by Provider: 02/15/21 16:11 History of Present Illness Provider complaint: Fall Onset (ago): day(s) 2 Location: lower extremity and left Severity: moderate Maximum Pain Intensity: 9 Current Pain Intensity: 8 Quality: + aching Relieved By: + immobilization Exacerbated By: + movement Associated symptoms: no chest pain, no cough, no diaphoresis, no fever/chills, no headaches, no nausea/vomiting, no rash, no shortness of breath and no syncope 75-year-old male presents emergency department with left hip and knee pain. Patient states he had a left hip replacement yesterday and fell yesterday. He said since then he has been having difficulty walking and fell again. Patient has hitting his head. Patient said he slid down. Patient denies any abdominal pain chest pain headache or neck pain. Patient states his pain is all in his left hip and left knee. Patient states he cannot walk because he feels like his hip and knee keep giving out on him. Home Medications Medication Instructions Recorded Confirmed Type amlodipine 5 mg PO QAM #0 12/08/14 02/15/21 History cholecalciferol (vitamin D3) 2,000 unit PO QAM 90 Days #90 cap 11/22/15 02/15/21 History Trelegy Ellipta 1 inh INHALATION QAM 11/16/20 02/15/21 History aspirin 81 mg PO BID #56 tab 02/13/21 02/15/21 Rx oxycodone 5 mg PO Q6H PRN #30 tab 02/13/21 02/15/21 Rx acetaminophen 1,000 mg PO Q8H PRN 02/15/21 02/15/21 History albuterol sulfate [ProAir HFA] 1 puff INHALATION QID PRN 02/15/21 02/15/21 History levocetirizine 5 mg PO QAM 02/15/21 02/15/21 History potassium 198 mg PO BID 02/15/21 02/15/21 History sennosides [Senokot] 17.2 mg PO HS PRN 02/15/21 02/15/21 History Allergies Allergy/AdvReac Type Severity Reaction Status Date / Time atorvastatin AdvReac Intermediate Myalgia Verified 02/15/21 17:07 Past Med/Surg History Medical History BPH (benign prostatic hyperplasia) Chronic back pain Chronic obstructive pulmonary disease stable History of COVID-19 dx 09/28/20 ([facility]), body aches, dyspnea, mild fever > recovered to baseline Obesity On home oxygen therapy 3L/MIN NC PRN (uses often) Osteoarthritis Surgical History H/O colonoscopy H/O hemorrhoidectomy History of cardiac cath 2012 (for abnormal stress test) > no stents History of herniorrhaphy History of repair of rotator cuff Left History of tooth extraction History of total hip arthroplasty R MARYELLEN, plus revision Previous back surgery L2-L3 decompression/fusion L1-L2 decomp, T12-L2 fusion (2015) S/P hip replacement S/P TURP Social History Smoking Status: Former smoker Tobacco Type: Cigarettes Second Hand Exposure: Yes ("EVERYBODY SMOKED"); Hx Alcohol Use: Yes Alcohol type: beer, wine and hard liquor Hx Substance Use: No Preferred Language: Azeri Communication Ability: Effective Sizing Machine Operator Required: No Beliefs That Will Affect Care: None marital status: Current Living Situation: Spouse Feels Safe at Home: Yes Assistive Devices: Walker Review of Systems A total of 10 systems reviewed and were otherwise negative Physical Exam Vital Signs Vital Signs - 24 hr 02/15/21 16:07 02/15/21 16:10 02/15/21 16:20 Temperature Temperature Source Pulse Rate 79 80 78 Pulse Rate from SpO2 Sensor Pulse Rhythm Pulse Strength Respiratory Rate 17 17 Respiratory Effort / Characteristics Respiratory Depth Blood Pressure 173/74 H Blood Pressure Mean 107 Blood Pressure Position Pulse Oximetry Oxygen Delivery Method Oxygen Flow Rate Sepsis Recent Fever Within 48 Hours Sepsis New/Unexplained Change in Mental Status Sepsis Action Taken by Nursing 02/15/21 16:21 02/15/21 16:30 02/15/21 16:40 Temperature 36.8 C Temperature Source Oral Pulse Rate 74 76 76 Pulse Rate from SpO2 Sensor 81 79 Pulse Rhythm Regular Pulse Strength Normal Respiratory Rate 20 16 20 Respiratory Effort / Characteristics Non-Labored Respiratory Depth Normal Blood Pressure 173/74 H Blood Pressure Mean 107 Blood Pressure Position Lying Pulse Oximetry 96 95 94 Oxygen Delivery Method Room Air Oxygen Flow Rate 3 Sepsis Recent Fever Within 48 Hours No Sepsis New/Unexplained Change in Mental Status No Sepsis Action Taken by Nursing No Action Required 02/15/21 16:50 02/15/21 17:00 02/15/21 17:26 Temperature Temperature Source Pulse Rate 74 76 79 Pulse Rate from SpO2 Sensor 74 75 80 Pulse Rhythm Pulse Strength Respiratory Rate 23 17 12 Respiratory Effort / Characteristics Respiratory Depth Blood Pressure Blood Pressure Mean Blood Pressure Position Pulse Oximetry 95 96 94 Oxygen Delivery Method Oxygen Flow Rate Sepsis Recent Fever Within 48 Hours Sepsis New/Unexplained Change in Mental Status Sepsis Action Taken by Nursing 02/15/21 17:30 02/15/21 17:36 Temperature Temperature Source Pulse Rate 78 76 Pulse Rate from SpO2 Sensor 78 77 Pulse Rhythm Pulse Strength Respiratory Rate 23 25 H Respiratory Effort / Characteristics Respiratory Depth Blood Pressure 179/77 H Blood Pressure Mean 111 Blood Pressure Position Pulse Oximetry 94 94 Oxygen Delivery Method Oxygen Flow Rate Sepsis Recent Fever Within 48 Hours Sepsis New/Unexplained Change in Mental Status Sepsis Action Taken by Nursing Physical Exam GENERAL: He is oriented to person, place, and time. He appears well-developed and well-nourished. He does not appear distressed. HENT: Exam performed. - Head: Normocephalic and atraumatic. - Right Ear: External ear normal. No mastoid tenderness. - Left Ear: External ear normal. No mastoid tenderness. - Mouth/Throat: The oropharynx is clear and moist. No trismus in the jaw. No dental abscesses or uvula swelling. No oropharyngeal exudate or tonsillar abscesses. EYES: Conjunctivae and EOM are normal. Pupils are equal, round, and reactive to light. Right eye exhibits no discharge. Left eye exhibits no discharge. No scler al icterus. NECK: Normal range of motion. Neck supple. No JVD present. No spinous process tenderness present. No carotid bruit present. No rigidity. No tracheal deviation and normal range of motion present. No Brudzinski's sign and no Kernig's sign noted. CV: Normal rate, regular rhythm, normal heart sounds and intact distal pulses. There is no peripheral edema. Palpable radial pulses bue. PULM/CHEST: Effort normal and breath sounds normal. No respiratory distress. No stridor. He has no wheezes. He has no rales. - Chest Wall: He exhibits no tenderness. ABD: The abdomen is soft. Bowel sounds are normal. He has no distension. No mass is present. There is no tenderness. There is no rebound, no guarding, no Winn's sign and no tenderness at McBurney's point. Rovsig negative. MUSC/SKEL: Pelvis stable. Pain on palpation of the left hip and left knee. Surgical wound is clean and dry. No bleeding or discharge from the surgical wound on the left hip. Compartments of the left lower extremity are soft. Palpable DP and PT pulses bilateral lower extremities. No C, T, or L-spine tenderness. LYMPH: No cervical adenopathy. NEURO: Motor and sensation grossly intact. SKIN: Skin is warm and dry. He is not diaphoretic. PSYCH: He has a normal mood and affect. Behavior is normal. Judgment and thought content normal. Course Course 1611: The patient was evaluated in room A12. A complete history and physical exam was performed Cardiac monitoring: An order was placed for continuous cardiac monitoring. The monitor shows a rate of 70 with sinus rhythm EMR reviewed. Patient had a left arthroplasty done by Dr. Owens on February 13, 2021 and he was discharged from the hospital yesterday February 14, 2021 1800: Vital signs stable. X-ray shows a periprosthetic fracture. I discussed the case with [facility] on-call Dr. Andino who states to admit to medicine and they will be on consult. Dr. Margret roa formerly [facility] hospitalist has been notified. is at bedside and confirms that the patient not hit his head at any time during any of the falls. Administered Medications Discontinued Medications Hydromorphone HCl (Hydromorphone Inj 1 Mg/Ml Syringe) 1 mg IV NOW STA Stop: 02/15/21 17:42 Last Admin: 02/15/21 17:48 Dose: 1 mg Documented by: [id number] Medical Decision Making Laboratory Data Result diagrams: 02/15/21 16:16 02/15/21 16:16 Imaging Data Radiologist's Impression: Hip/Pelvis X-Ray 02/15/21 16:16 XR hip LT 2V w pelvis CLINICAL HISTORY: fall COMPARISON: Pelvis and left hip radiographs February 13, 2021. FINDINGS: Note is made of an acute nondisplaced periprosthetic fracture along the distal aspect of the femoral component of left hip arthroplasty. Alignment of the arthroplasty is anatomic. Right hip arthroplasty is noted. Skin sloan are present. There are no unexpected radiopaque foreign bodies. IMPRESSION: Acute nondisplaced periprosthetic fracture along the distal aspect of the femoral component of the left hip arthroplasty. ACT 112: Negative or not required by law. Electronically signed by: Kiko Cameron M.D. 02/15/2021 5:46 PM Knee X-Ray 02/15/21 16:16 XR knee LT 1 or 2V routine CLINICAL HISTORY: fall COMPARISON: None FINDINGS: Note is made of the acute nondisplaced periprosthetic fracture which extends to the distal aspect of the femoral component of left hip arthroplasty. Distal extent is to the mid shaft of the left femur. Alignment of the left knee is anatomic. There is no left knee joint effusion. There is no proximal left tibial or fibular fracture shown on lateral projection. IMPRESSION: Acute nondisplaced periprosthetic fracture adjacent to the femoral component of left hip arthroplasty that extends to the mid shaft of the left femur. ACT 112: Negative or not required by law. Electronically signed by: Kiko Cameron M.D. 02/15/2021 5:47 PM Chest X-Ray 02/15/21 17:23 XR chest 1V portable CLINICAL HISTORY: fall COMPARISON STUDY: Chest radiograph November 22, 2020. FINDINGS: No pneumothorax or pleural effusion is noted. Linear bibasilar opacities favor atelectasis. There is no consolidation or evidence for pulmonary edema. Mild cardiomegaly is unchanged. IMPRESSION: 1. Linear bibasilar opacities suggestive of atelectasis. 2. Mild cardiomegaly. No evidence for pulmonary edema. ACT 112: Negative or not required by law. Electronically signed by: Kiko Cameron M.D. 02/15/2021 5:49 PM ECG Data Indication: + other (pre op) Rate (beats per minute): 77 Rhythm: + normal sinus ECG Intervals/blocks: + Normal QRS, + Normal [place] and + Normal QT-c ECG ST segments: + Normal ST segments [facility] Narrative 1611: The patient was evaluated in room A12. A complete history and physical exam was performed Cardiac monitoring: An order was placed for continuous cardiac monitoring. The monitor shows a rate of 70 with sinus rhythm EMR reviewed. Patient had a left arthroplasty done by Dr. Owens on February 13, 2021 and he was discharged from the hospital yesterday February 14, 2021 1800: Vital signs stable. X-ray shows a periprosthetic fracture. I discussed the case with [facility] on-call Dr. Andino who states to admit to medicine and they will be on consult. Dr. Margret roa any hospitalist has been notified. is at bedside and confirms that the patient not hit his head at any time during any of the falls. Impression & Plan Fracture of prosthetic hip Discharge Plan Visit Data Chief Complaint: Fall Stated Complaint: FALLS, L HIP PAIN ED Provider: Mando Rahman Discharge Problem: Fracture of prosthetic hip Patient Disposition: Admitted As Inpatient Forms Stand Alone Forms: My [facility] MUJIN Prescriptions Prescriptions: No Action amlodipine 5 mg Tablet 5 mg PO QAM Qty: 0 RF: 0 cholecalciferol (vitamin D3) 2,000 unit Capsule 2,000 unit PO QAM 90 Days Qty: 90 RF: 3 Trelegy Ellipta 100-62.5-25 mcg Blister With Device 1 inh INHALATION QAM RF: 0 aspirin 81 mg Tablet,Delayed Release (Dr/Ec) 81 mg PO BID Qty: 56 RF: 0 oxycodone 5 mg Tablet 5 mg PO Q6H PRN (Reason: pain) Qty: 30 RF: 0 potassium 99 mg Tablet 198 mg PO BID RF: 0 albuterol sulfate [ProAir HFA] 90 mcg/actuation HFA aerosol inhaler 1 puff INHALATION QID PRN (Reason: Shortness Of Breath Or Wheezing) RF: 0 levocetirizine 5 mg tablet 5 mg PO QAM RF: 0 sennosides [Senokot] 8.6 mg tablet 17.2 mg PO HS PRN (Reason: Constipation) RF: 0 acetaminophen 500 mg tablet 1,000 mg PO Q8H PRN (Reason: Fever Or Pain) RF: 0 Referrals Referrals: Julieta Humphries [Primary Care Provider] - Discharge Problem: Fracture of prosthetic hip Qualifiers: Encounter type: initial encounter Qualified Code(s): T84.019A - Broken internal joint prosthesis, unspecified site, initial encounter
[2021-02-15] MEDS ORDERED: MoRPHine SULFATE 4 MG/ML 1 ML CARP\\VIAL IV PRN (17:41)
[2021-02-15] MEDS ORDERED: HYDROmorphone INJ 1 MG/ML SYRINGE IV STA (17:41)
[2021-02-15] MEDS ORDERED: MoRPHine SULFATE 2 MG/ML CARP IV PRN (17:41)
--- NOTE | 2021-02-15 17:47 | XRay Report ---
XR hip LT 2V w pelvis CLINICAL HISTORY: fall COMPARISON: Pelvis and left hip radiographs February 13, 2021. FINDINGS: Note is made of an acute nondisplaced periprosthetic fracture along the distal aspect of t he femoral component of left hip arthroplasty. Alignment of the arthroplasty is anatomic. Right hip a rthroplasty is noted. Skin sloan are present. There are no unexpected radiopaque foreign bodies. IMPRESSION: Acute nondisplaced periprosthetic fracture along the distal aspect of the femoral compone nt of the left hip arthroplasty. ACT 112: Negative or not required by law. Electronically signed by: Kiko Cameron M.D. 02/15/2021 5:46 PM
--- NOTE | 2021-02-15 17:49 | XRay Report ---
XR knee LT 1 or 2V routine CLINICAL HISTORY: fall COMPARISON: None FINDINGS: Note is made of the acute nondisplaced periprosthetic fracture which extends to the distal aspect of the femoral component of left hip arthroplasty. Distal extent is to the mid shaft of the l eft femur. Alignment of the left knee is anatomic. There is no left knee joint effusion. There is no proximal left tibial or fibular fracture shown on lateral projection. IMPRESSION: Acute nondisplaced periprosthetic fracture adjacent to the femoral component of left hip arthroplasty that extends to the mid shaft of the left femur. ACT 112: Negative or not required by law. Electronically signed by: Kiko Cameron M.D. 02/15/2021 5:47 PM
--- NOTE | 2021-02-15 17:50 | XRay Report ---
XR chest 1V portable CLINICAL HISTORY: fall COMPARISON STUDY: Chest radiograph November 22, 2020. FINDINGS: No pneumothorax or pleural effusion is noted. Linear bibasilar opacities favor atelectasis. There is no consolidation or evidence for pulmonary edema. Mild cardiomegaly is unchanged. IMPRESSION: 1. Linear bibasilar opacities suggestive of atelectasis. 2. Mild cardiomegaly. No evidence for pulmonary edema. ACT 112: Negative or not required by law. Electronically signed by: Kiko Cameron M.D. 02/15/2021 5:49 PM
[2021-02-15 18:07] LABS: Basophils # (auto) 0.02 K/uL (0-0.2); Basophils % (auto) 0.2 %; Eosinophils # (auto) 0.09 K/uL (0-0.5); Eosinophils % (auto) 0.7 %; Hematocrit (blood only) 36.7 % (42-52); Hemoglobin 12.2 g/dL (14.0-18.0); Immature Granulocytes # (auto) 0.06 K/uL (0.00-0.02); Immature Granulocytes % (auto) 0.5 %; Lymphocytes # (auto) 1.21 K/uL (1.2-3.4); Lymphocytes % (auto) 10.1 %; Mean Corpuscular Hemoglobin 30.7 pg (25-34); Mean Corpuscular Hgb Conc 33.2 g/dL (32-36); Mean Corpuscular Volume 92.2 fL (80-100); Mean Platelet Volume 9.2 fL (7.4-10.4); Monocytes # (auto) 1.18 K/uL (0.11-0.59); Monocytes % (auto) 9.8 %; Neutrophils # (auto) 9.45 K/uL (1.4-6.5); Neutrophils % (auto) 78.7 %; Platelet Count 189 K/uL (130-400); RDW Standard Deviation 46.8 fL (36.4-46.3); Red Blood Count 3.98 M/uL (4.7-6.1); White Blood Count 12.01 K/uL (4.8-10.8)
[2021-02-15 18:14] LABS: Albumin Level 3.5 gm/dl (3.4-5.0); Calcium 8.3 mg/dl (8.5-10.1); Creatinine Clr Calc Pharmacy 108.1 ml/min; Est GFR (African American) 98.5; Potassium 4.2 mmol/L (3.5-5.1)
[2021-02-15 18:16] LABS: Partial Thromboplastin Ratio 0.9; Partial Thromboplastin Time 24.2 Seconds (21.0-31.0); Prothrombin Time 10.2 Seconds (9.0-12.0)
[2021-02-15 18:17] LABS: Albumin Globulin Ratio 1.2 (0.9-2); Bilirubin,Total 0.7 mg/dl (0.2-1); Total Protein 6.5 gm/dl (6.4-8.2)
--- NOTE | 2021-02-15 19:04 | History & Physical Report ---
Date of Service February 15, 2021 Assessment & Plan (1) Fracture of prosthetic hip: NPO after midnight. IV fluids. Acetaminophen, morphine for pain. Ondansetron for nausea Revised cardiac risk score 0, 3.9% 30-day risk of , Mi, or cardiac arrest Consult orthopedics (2) Fall: This appears to be mechanical in nature related to his THR. No dizziness, chest pain or shortness of breath prior to falling to suggest need for further workup. (3) SARS-CoV-2 positive: Patient had COVID-19 in September 2020 therefore unclear if this represents a new infection. He has also been immunized x2. Currently on baseline home O2. No acute symptoms suggestive of new infection however seems reasonable to isolate patient with COVID-19 restriction at this time. CXR unremarkable. (4) BPH (benign prostatic hyperplasia): Notable history of this. Not on medication. Humphrey catheter placed in the ER. Monitor closely for post humphrey catheter urinary retention (5) Chronic obstructive pulmonary disease: Continue YAZUO Ellipta or hospital formulary equivalent. No acute exacerbation (6) On home oxygen therapy: Currently at baseline 3L 02 (7) Hypertension: Continue amlodipine 5mg PO daily (hold if sBP < 120 pre-operatively) (8) DVT prophylaxis: D-dimer added to am labs to risk stratify, no active VTE suspected. Consider Lovenox post operatively if d-dimer > 700 in setting of SARS-COV-2 positive test. Admission and Anticipated Discharge Date Admission Date: February 15, 2021 History of Present Illness Chief Complaint: Left hip pain Primary Care Provider: Julieta Humphries Paulino Jacobson is a 75 year old male who presents to the ER after recent left THR performed by Dr Owens on February 13. The patient report an incident POD #1 in hospital while standing to urinate his left knee gave our causing him to drop the urine jug. He felt a slight pain in his left hip since that time but was able to walk on it normally and he was discharged home yesterday. At 3am he went to the bathroom using his walker. His wound vac back fell of his shoulder and he instinctly went to catch it. In doing so he fell slightly, having to catch himself using the toilet roll baum which he ended up ripping off the wall. He think his hip pain may have been increased after this. He was still able to walk on it up until 10:30am today he went to sit down on his chair. He tried to move his leg forward prior to sitting down but it got stuck. He therefore went to sit down with his leg underneath him and was unable to stop himself. He heard a loud pop and felt he had dislocated his hip with intense pain. Initially tried to recover in the chair but was unable to stand up after this and pain severity 10/10 therefore they called for EMS. Currently at baseline O2 requirement 3L. He denies any wheezing, shortness of breath or cough suggestive of COPD exacerbation. He denies any cardiovascular history. In the ER XRs showed a periprosthetic femoral fracture. On discussion with orthopedics they prefer to have the patient admitted under medicine for surgical optimization and orthopedics will see in the morning. SARS-COV-2 test returned positive. The patient reports he has been vaccinated x2 and he had COVID-19 pneumonia in September 2020, CXR unremarkable. Allergies Allergy/AdvReac Type Severity Reaction Status Date / Time atorvastatin AdvReac Intermediate Myalgia Verified 02/15/21 17:07 Home Medications Medication Instructions Recorded Confirmed Type amlodipine 5 mg PO QAM #0 12/08/14 02/15/21 History cholecalciferol (vitamin D3) 2,000 unit PO QAM 90 Days #90 cap 11/22/15 02/15/21 History Trelegy Ellipta 1 inh INHALATION QAM 11/16/20 02/15/21 History aspirin 81 mg PO BID #56 tab 02/13/21 02/15/21 Rx oxycodone 5 mg PO Q6H PRN #30 tab 02/13/21 02/15/21 Rx acetaminophen 1,000 mg PO Q8H PRN 02/15/21 02/15/21 History albuterol sulfate [ProAir HFA] 1 puff INHALATION QID PRN 02/15/21 02/15/21 History levocetirizine 5 mg PO QAM 02/15/21 02/15/21 History potassium 198 mg PO BID 02/15/21 02/15/21 History sennosides [Senokot] 17.2 mg PO HS PRN 02/15/21 02/15/21 History Past Med/Surg History Medical History BPH (benign prostatic hyperplasia) Chronic back pain Chronic obstructive pulmonary disease stable History of COVID-19 dx 09/28/20 ([facility]), body aches, dyspnea, mild fever > recovered to baseline Hypertension Obesity On home oxygen therapy 3L/MIN NC PRN (uses often) Osteoarthritis Surgical History H/O colonoscopy H/O hemorrhoidectomy History of cardiac cath 2012 (for abnormal stress test) > no stents History of herniorrhaphy History of repair of rotator cuff Left History of tooth extraction History of total hip arthroplasty R MARYELLEN, plus revision Previous back surgery L2-L3 decompression/fusion L1-L2 decomp, T12-L2 fusion (2015) S/P hip replacement S/P TURP Social History Smoking Status: Former smoker Tobacco Type: Cigarettes Cigarettes Per Day: Quit 2007.; Second Hand Exposure: No; Do You Dip or Chew Tobacco: No; Tobacco Cessation Education Requested by Patient: No Hx Alcohol Use: Yes Alcohol type: beer Hx Substance Use: No Preferred Language: Ukrainian Communication Ability: Effective Wood Inspector Required: No Beliefs That Will Affect Care: None marital status: Current Living Situation: Spouse Other Information That Helps Us Care for You: No Feels Safe at Home: Yes Safety Concerns: Feels Safe At This Time Assistive Devices: Cane, Denture - Upper, Denture - Lower, Glasses, Hearing Aid - Bilateral and Oxygen - Continuous Assistive Devices Comment: 3L at home for COPD. Review of Systems Review of Systems: All systems reviewed & are unremarkable except as noted in HPI & below Physical Exam Constitutional: WD/WN, vitals as above + obese; no acute distress Eyes: + anicteric sclerae; normal pupil size ENMT: external ear and nose normal, oropharynx normal Mouth: + dry oral mucous membranes Neck: trachea midline, no thyromegaly Respiratory: normal respiratory effort, lungs clear to auscultation Cardiovascular: Rate/Rhythm: regular rate and regular rhythm Heart Sounds: no murmur Vessels: no JVD Extremities: normal capillary refill; no calf tenderness and no pedal edema Gastrointestinal (Abdomen): normal bowel sounds, soft, nontender, no hepatosplenomegaly Musculoskeletal: NV intact distal to fracture site Skin: Wound vac and drain in place from prior operation site. Not taken down but no surrounding cellulitis noted. Mild blood noted on distal surgical scar gauze. Neurologic: moves all extremities and awake; not confused Speech / Cognition: normal speech Psychiatric: A+Ox3, euthymic affect Results & Data Results & Data ([facility]) Vital Signs (Past 12 Hours) Vital Signs Temp Pulse Resp BP Pulse Ox 02/15/21 18:40 76 17 94 02/15/21 18:31 79 12 91 02/15/21 18:30 77 15 165/65 H 93 02/15/21 18:20 78 24 92 02/15/21 18:10 80 18 93 02/15/21 18:01 77 14 91 02/15/21 18:00 78 15 138/66 91 02/15/21 17:50 75 14 94 02/15/21 17:40 76 19 95 02/15/21 17:36 76 25 H 179/77 H 94 02/15/21 17:30 78 23 94 02/15/21 17:26 79 12 94 02/15/21 17:00 76 17 96 02/15/21 16:50 74 23 95 02/15/21 16:40 76 20 94 02/15/21 16:30 76 16 95 02/15/21 16:21 36.8 C 74 20 173/74 H 96 02/15/21 16:20 78 02/15/21 16:10 80 17 02/15/21 16:07 79 17 173/74 H Diagnostic Findings XR chest 1V portable IMPRESSION: 1. Linear bibasilar opacities suggestive of atelectasis. 2. Mild cardiomegaly. No evidence for pulmonary edema. XR knee LT 1 or 2V routine IMPRESSION: Acute nondisplaced periprosthetic fracture adjacent to the femoral component of left hip arthroplasty that extends to the mid shaft of the left femur. XR hip LT 2V w pelvis IMPRESSION: Acute nondisplaced periprosthetic fracture along the distal aspect of the femoral component of the left hip arthroplasty. Medications Administered ER Medications Given: Dilaudid 1mg IV Morphine 2mg IV ECG Indication: other (Pre-op) Rate (beats per minute): 77 Rhythm: junctional Findings: no acute ischemic change Comparison ECG Date: from (Nov 22, 2020) Change: the following changes noted (Junction replaced sinus rhythm) Code Status & VTE Plan Code Status Full VTE Prophylaxis Plan VTE Prophylaxis will be ordered: No Reason for no VTE drug order: Contraindicated (pending surgery decision) PG Care Time/CCT Total # of Minutes Spent Total Time Spent with Patient: Total time spent is greater than 50% in coordination of care (as documented) at patient's floor/unit and/or counseling patient: Coding Level of Care Code 26831 Initial Inpt Care Lvl 3 Diagnoses Fracture of prosthetic hip T84.019A; Z96.649 Encounter type: initial encounter Fall W19.XXXA Encounter type: initial encounter SARS-CoV-2 positive U07.1 BPH (benign prostatic hyperplasia) N40.0 Lower urinary tract symptom presence: symptoms absent Chronic obstructive pulmonary disease J44.9 COPD type: unspecified COPD On home oxygen therapy Z99.81 Hypertension I10 DVT prophylaxis Z29.9 (1) BPH (benign prostatic hyperplasia) Lower urinary tract symptom presence: symptoms absent Qualified Code(s): N40.0 - Benign prostatic hyperplasia without lower urinary tract symptoms (2) Fracture of prosthetic hip Encounter type: initial encounter Qualified Code(s): T84.019A - Broken internal joint prosthesis, unspecified site, initial encounter; Z96.649 - Presence of unspecified artificial hip joint (3) Chronic obstructive pulmonary disease COPD type: unspecified COPD Qualified Code(s): J44.9 - Chronic obstructive pulmonary disease, unspecified (4) Fall Encounter type: initial encounter Qualified Code(s): W19.XXXA - Unspecified fall, initial encounter
[2021-02-15 19:45] LABS: Appearance Urine Clear (Clear); Bilirubin Urine Negative (Negative); Blood Urine Negative (Negative); Color Urine Yellow; Glucose Urine UA Negative (Negative); Ketones Urine 2+ (Negative); Leukocyte Esterase Urine Negative (Negative); Nitrite Urine Negative (Negative); Protein Urine Negative (Negative); Urobilinogen Urine Negative (Negative)
[2021-02-15 20:04] LABS: Influenza A virus by PCR Negative (Neg); Influenza B virus by PCR Negative (Neg); RSV by PCR Negative (Neg)
[2021-02-15 20:08] LABS: SARS CoV2 RNA(COVID-19) InHosp POSITIVE (Negative)
[2021-02-15] MEDS: ACETAMINOPHEN 500 MG TAB PO PRN (22:49)
[2021-02-16] MEDS ORDERED: MAGNESIUM HYDROXIDE SUSP 30 ML UDC PO PRN (00:09)
[2021-02-16] MEDS ORDERED: NALOXONE HCL 0.4 MG/1 ML VIAL/CARP IV PRN (00:09)
[2021-02-16] MEDS ORDERED: bisacodyL 10 MG SUPP PR PRN (00:09)
[2021-02-16] MEDS: MoRPHine SULFATE 4 MG/ML 1 ML CARP\\VIAL IV PRN ×5 (00:11→20:03)
[2021-02-16] MEDS ORDERED: ONDANSETRON INJ 2 MG/ML 2 ML VIAL IV PRN (00:13)
[2021-02-16] MEDS: LACTATED RINGER'S 1,000 ML IV SCH ×2 (00:15→15:30)
[2021-02-16 07:21] LABS: Basophils # (auto) 0.01 K/uL (0-0.2); Basophils % (auto) 0.1 %; Eosinophils # (auto) 0.15 K/uL (0-0.5); Eosinophils % (auto) 1.9 %; Hematocrit (blood only) 31.7 % (42-52); Hemoglobin 10.7 g/dL (14.0-18.0); Immature Granulocytes # (auto) 0.01 K/uL (0.00-0.02); Immature Granulocytes % (auto) 0.1 %; Lymphocytes # (auto) 1.31 K/uL (1.2-3.4); Lymphocytes % (auto) 16.7 %; Mean Corpuscular Hemoglobin 30.7 pg (25-34); Mean Corpuscular Hgb Conc 33.8 g/dL (32-36); Mean Corpuscular Volume 91.1 fL (80-100); Mean Platelet Volume 8.9 fL (7.4-10.4); Monocytes # (auto) 0.96 K/uL (0.11-0.59); Monocytes % (auto) 12.2 %; Platelet Count 164 K/uL (130-400); RDW Standard Deviation 46.3 fL (36.4-46.3); Red Blood Count 3.48 M/uL (4.7-6.1); White Blood Count 7.84 K/uL (4.8-10.8)
[2021-02-16 07:33] LABS: D Dimer 1200 ug/L FEU (0-500)
[2021-02-16 07:47] LABS: BUN Creatinine Ratio 17.5 (10-20); C Reactive Protein 8.46 mg/dl (0-0.29); Calcium 7.9 mg/dl (8.5-10.1); Creatinine Clr Calc Pharmacy 142.9 ml/min; Est GFR (African American) 110.4; Est GFR (Non-African American) 95.2; Potassium 3.8 mmol/L (3.5-5.1)
[2021-02-16] MEDS: ACETAMINOPHEN 500 MG TAB PO PRN ×2 (08:57→20:04)
[2021-02-16] MEDS: CHOLECALCIFEROL 1,000 UNITS 25 MCG TAB PO SCH (08:57)
[2021-02-16] MEDS: amLODIPine BESYLATE 5 MG TAB PO SCH (08:57)
[2021-02-16] MEDS: UMECLIDINIUM/VILANTEROL 62.5/25MCG 7 PUFFS/INHALER INH SCH (08:59)
[2021-02-16] MEDS ORDERED: ASPIRIN 81 MG ECTAB PO SCH (09:00)
[2021-02-16] MEDS: FLUTICASONE FUROATE 100MCG 14 PUFFS/INHALER INH SCH (09:00)
--- NOTE | 2021-02-16 13:17 | CT Scan Report ---
CT OF THE LEFT FEMUR WITHOUT CONTRAST CLINICAL HISTORY: periprosthetic hip fx; assess fx length COMPARISON STUDY: Left hip radiographs February 15, 2021. TECHNIQUE: Axial images of the left femur were obtained without IV contrast. Sagittal and coronal rec onstructions were viewed. Automated exposure control was utilized for the study. A dose lowering corey hnique was utilized adhering to the principles of ALARA. FINDINGS: Left hip arthroplasty is noted. Evaluation is mildly compromised due to streak artifact fro m the surgical hardware. The hardware is intact. Note is made of long vertical acute mildly distracte d periprosthetic fracture of the left femur. Fracture extends from the proximal aspect of the femur t o just beyond the midshaft of the left femur. The fracture is distracted 1 cm proximally. Fracture is within the sagittal plane. No additional fractures are identified on this examination. Acetabular sc rew is in place. Note is made of subcutaneous edema as well as subcutaneous fascial edema overlying t he fastest lateral talus. This is postsurgical. No suspicious osseous lesions are noted. Alignment of the left knee is anatomic. There is moderate to severe medial compartment joint space narrowing. IMPRESSION: 1. Long vertical acute mildly distracted periprosthetic fracture of the left femur that extends from the proximal femur to just beyond the mid shaft. 2. Status post total left hip arthroplasty. Hardware intact. Subcutaneous edema and subfascial edema overlying the vastus lateralis which is post surgical. ACT 112: Negative or not required by law. Electronically signed by: Kiko Cameron M.D. 02/16/2021 1:15 PM
--- NOTE | 2021-02-16 14:07 | Orthopedic Consultation ---
Date of Consultation February 16, 2021 Assessment & Plan (1) Fracture of prosthetic hip: Left periprosthetic femur fracture I have spoken to Dr. Owens. He has reviewed the case. Plans will be made for ORIF of left femur and revision of a left femoral stem and femoral head to be done on Friday. Special femoral stems will be needed for the procedure and will be ordered in over the weekend. I have spoken to Dr. Kaushik Lawson about his Covid status. Patient has history of having Covid in September and also undergoing vaccination for COVID-19. A repeat test will be done either tomorrow or Friday. Even if the repeat test is positive, patient will need to have the fracture repaired and a revision stem placed in. Currently, we will put him on heparin subcu twice daily. Continue pain control. I have discussed the plan of treatment with the patient and with his . The orthopedics company will be contacted today to order in any special comment that we will need. History of Present Illness Reason for Consultation: Left periprosthetic hip fracture Attending Physician: Kaushik Lawson MD History of Present Illness Patient is a 75-year-old male who recently underwent left total hip arthroplasty on 02/13/2021. Prior to his discharge on his first postoperative day, patient experienced his left knee giving out and having some question of mild hip discomfort. He apparently was trying to use a portable urinal and dropped the bottle during the incident. He underwent his physical therapy as well as o ccupational therapy and was felt he was stable for discharge. The patient states that at home, he was having some difficulty with some discomfort in the hip and at one point in the day, he felt and heard a loud pop which caused him moderate pain and for his knee to give out as well. He was unable to ambulate or put weight on the left lower extremity. He states he was able to lower himself into a chair. At that point he called the emergency squad. He states that it took the 2 of them to help lift him out of the chair because he had decreased strength. He was brought to the emergency room here at [facility] and x-rays were taken. It was found that he had a periprosthetic hip fracture of the left hip. Incidentally, a Covid test was then also taken and was found to be positive even though he was negative several days prior. He was admitted to an isolation room with the above-noted fracture. The patient denies falling at any time while at home. Allergies Allergy/AdvReac Type Severity Reaction Status Date / Time atorvastatin AdvReac Intermediate Myalgia Verified 02/15/21 17:07 Home Medications Medication Instructions Recorded Confirmed Type amlodipine 5 mg PO QAM #0 12/08/14 02/15/21 History cholecalciferol (vitamin D3) 2,000 unit PO QAM 90 Days #90 cap 11/22/15 02/15/21 History Trelegy Ellipta 1 inh INHALATION QAM 11/16/20 02/15/21 History aspirin 81 mg PO BID #56 tab 02/13/21 02/15/21 Rx oxycodone 5 mg PO Q6H PRN #30 tab 02/13/21 02/15/21 Rx acetaminophen 1,000 mg PO Q8H PRN 02/15/21 02/15/21 History albuterol sulfate [ProAir HFA] 1 puff INHALATION QID PRN 02/15/21 02/15/21 History levocetirizine 5 mg PO QAM 02/15/21 02/15/21 History potassium 198 mg PO BID 02/15/21 02/15/21 History sennosides [Senokot] 17.2 mg PO HS PRN 02/15/21 02/15/21 History Patient History Medical History BPH (benign prostatic hyperplasia) Chronic back pain Chronic obstructive pulmonary disease stable History of COVID-19 dx 09/28/20 ([facility]), body aches, dyspnea, mild fever > recovered to baseline Hypertension Obesity On home oxygen therapy 3L/MIN NC PRN (uses often) Osteoarthritis Surgical History H/O colonoscopy H/O hemorrhoidectomy History of cardiac cath 2012 (for abnormal stress test) > no stents History of herniorrhaphy History of repair of rotator cuff Left History of tooth extraction History of total hip arthroplasty R MARYELLEN, plus revision Previous back surgery L2-L3 decompression/fusion L1-L2 decomp, T12-L2 fusion (2015) S/P hip replacement S/P TURP Social History Smoking Status: Former smoker Tobacco Type: Cigarettes Cigarettes Per Day: Quit 2007.; Second Hand Exposure: No; Do You Dip or Chew Tobacco: No; Tobacco Cessation Education Requested by Patient: No Hx Alcohol Use: Yes Alcohol type: beer Hx Substance Use: No Preferred Language: Omani Communication Ability: Effective Detective Captain Required: No Beliefs That Will Affect Care: None marital status: Current Living Situation: Spouse Other Information That Helps Us Care for You: No Feels Safe at Home: Yes Safety Concerns: Feels Safe At This Time Assistive Devices: None Assistive Devices Comment: 3L at home for COPD. Review of Systems Review of Systems: All systems reviewed & are unremarkable except as noted in HPI & below Physical Exam Physical Exam: On examination, the patient is lying in bed awake and alert, oriented x3. He is in no acute distress. Pleasant and cooperative. Pain appears to be controlled at this time. On examination of his left lower extremity it is shortened compared to the right. He has thigh swelling well below the incisional area from his MARYELLEN. Prevena wound VAC is on his left hip wound and is functioning. The swelling is not tense but he does have mild to moderate discomfort on palpation of the mid thigh at this time. Hip range of motion deferred secondary to fracture. No obvious pain on palpation of his left knee and left knee range of motion is deferred secondary to left periprosthetic hip fracture. He has good range of motion of his left ankle and toes and sensation is intact. Right lower extremity is unaffected and range of motion is within normal as of the hip knee and ankle. Upper extremities are nontender at the shoulders elbows and wrists. There is no gross motor or sensory loss seen at this time. Results & Data ([facility]) Vital Signs (Past 12 Hours) Vital Signs Temp Pulse Resp BP Pulse Ox Pulse Ox 02/16/21 07:58 36.5 C 71 18 148/69 H 95 02/16/21 06:07 97 02/16/21 02:07 97 Laboratory Results Laboratory Results WBC 7.84 K/uL (4.8-10.8) 02/16/21 06:58 RBC 3.48 M/uL (4.7-6.1) L 02/16/21 06:58 Hgb 10.7 g/dL (14.0-18.0) L 02/16/21 06:58 Hct 31.7 % (42-52) L 02/16/21 06:58 MCV 91.1 fL (80-100) 02/16/21 06:58 MCH 30.7 pg (25-34) 02/16/21 06:58 MCHC 33.8 g/dL (32-36) 02/16/21 06:58 RDW Std Deviation 46.3 fL (36.4-46.3) 02/16/21 06:58 RDW Coeff of Richie 14.0 % (11.5-14.5) 02/16/21 06:58 Plt Count 164 K/uL (130-400) 02/16/21 06:58 MPV 8.9 fL (7.4-10.4) 02/16/21 06:58 Immature Gran % (Auto) 0.1 % 02/16/21 06:58 Neut % (Auto) 69.0 % 02/16/21 06:58 Lymph % (Auto) 16.7 % 02/16/21 06:58 Emmet % (Auto) 12.2 % 02/16/21 06:58 Eos % (Auto) 1.9 % 02/16/21 06:58 Baso % (Auto) 0.1 % 02/16/21 06:58 Neut # (Auto) 5.40 K/uL (1.4-6.5) 02/16/21 06:58 Lymph # (Auto) 1.31 K/uL (1.2-3.4) 02/16/21 06:58 Emmet # (Auto) 0.96 K/uL (0.11-0.59) H 02/16/21 06:58 Eos # (Auto) 0.15 K/uL (0-0.5) 02/16/21 06:58 Baso # (Auto) 0.01 K/uL (0-0.2) 02/16/21 06:58 Immature Gran # (Auto) 0.01 K/uL (0.00-0.02) 02/16/21 06:58 PT 10.2 Seconds (9.0-12.0) 02/15/21 16:16 INR 1.0 (0.9-1.1) 02/15/21 16:16 APTT 24.2 Seconds (21.0-31.0) 02/15/21 16:16 PTT Ratio 0.9 02/15/21 16:16 D-Dimer 1200 ug/L FEU (0-500) H* 02/16/21 06:58 Sodium 138 mmol/L (136-145) 02/16/21 06:58 Potassium 3.8 mmol/L (3.5-5.1) 02/16/21 06:58 Chloride 106 mmol/L (98-107) 02/16/21 06:58 Carbon Dioxide 30 mmol/L (21-32) 02/16/21 06:58 Anion Gap 2.0 (3-11) L 02/16/21 06:58 BUN 12 mg/dl (7-18) 02/16/21 06:58 Creatinine 0.66 mg/dl (0.6-1.4) 02/16/21 06:58 Est Cr Clr Drug Dosing 142.9 ml/min 02/16/21 06:58 Est GFR ( Amer) 110.4 02/16/21 06:58 Est GFR (Non-Af Amer) 95.2 02/16/21 06:58 BUN/Creatinine Ratio 17.5 (10-20) 02/16/21 06:58 Glucose 100 mg/dl (70-99) H 02/16/21 06:58 Calcium 7.9 mg/dl (8.5-10.1) L 02/16/21 06:58 Total Bilirubin 0.7 mg/dl (0.2-1) 02/15/21 16:16 AST 28 U/L (15-37) 02/15/21 16:16 ALT 19 U/L (12-78) 02/15/21 16:16 Alkaline Phosphatase 62 U/L (45-117) 02/15/21 16:16 C-Reactive Protein 8.46 mg/dl (0-0.29) H 02/16/21 06:58 Total Protein 6.5 gm/dl (6.4-8.2) 02/15/21 16:16 Albumin 3.5 gm/dl (3.4-5.0) 02/15/21 16:16 Globulin 3.0 gm/dl (2.5-4.0) 02/15/21 16:16 Albumin/Globulin Ratio 1.2 (0.9-2) 02/15/21 16:16 Urine Color Yellow 02/15/21 18:08 Urine Appearance Clear (Clear) 02/15/21 18:08 Urine pH 6.0 (4.5-7.5) 02/15/21 18:08 Ur Specific [place]ard 1.020 (1.000-1.030) 02/15/21 18:08 Urine Protein Negative (Negative) 02/15/21 18:08 Urine Glucose (UA) Negative (Negative) 02/15/21 18:08 Urine Ketones 2+ (Negative) H 02/15/21 18:08 Urine Blood Negative (Negative) 02/15/21 18:08 Urine Nitrite Negative (Negative) 02/15/21 18:08 Urine Bilirubin Negative (Negative) 02/15/21 18:08 Urine Urobilinogen Negative (Negative) 02/15/21 18:08 Ur Leukocyte Esterase Negative (Negative) 02/15/21 18:08 COVID-19 Eval Order CovFluRsv at [facility] 02/15/21 19:12 SARS-CoV-2 (PCR) POSITIVE (Negative) A* 02/15/21 19:12 Influenza Type A (PCR) Negative (Neg) 02/15/21 19:12 Influenza Type B (PCR) Negative (Neg) 02/15/21 19:12 RSV (RT-PCR) Negative (Neg) 02/15/21 19:12 Blood Type A Positive 02/15/21 17:58 Antibody Screen NEGATIVE 02/15/21 17:58 Impressions Hip/Pelvis X-Ray 02/15/21 16:16 XR hip LT 2V w pelvis CLINICAL HISTORY: fall COMPARISON: Pelvis and left hip radiographs February 13, 2021. FINDINGS: Note is made of an acute nondisplaced periprosthetic fracture along the distal aspect of the femoral component of left hip arthroplasty. Alignment of the arthroplasty is anatomic. Right hip arthroplasty is noted. Skin sloan are present. There are no unexpected radiopaque foreign bodies. IMPRESSION: Acute nondisplaced periprosthetic fracture along the distal aspect of the femoral component of the left hip arthroplasty. ACT 112: Negative or not required by law. Electronically signed by: Kiko Cameron M.D. 02/15/2021 5:46 PM Knee X-Ray 02/15/21 16:16 XR knee LT 1 or 2V routine CLINICAL HISTORY: fall COMPARISON: None FINDINGS: Note is made of the acute nondisplaced periprosthetic fracture which extends to the distal aspect of the femoral component of left hip arthroplasty. Distal extent is to the mid shaft of the left femur. Alignment of the left knee is anatomic. There is no left knee joint effusion. There is no proximal left tibial or fibular fracture shown on lateral projection. IMPRESSION: Acute nondisplaced periprosthetic fracture adjacent to the femoral component of left hip arthroplasty that extends to the mid shaft of the left fem ur. ACT 112: Negative or not required by law. Electronically signed by: iKko Cameron M.D. 02/15/2021 5:47 PM Chest X-Ray 02/15/21 17:23 XR chest 1V portable CLINICAL HISTORY: fall COMPARISON STUDY: Chest radiograph November 22, 2020. FINDINGS: No pneumothorax or pleural effusion is noted. Linear bibasilar opacities favor atelectasis. There is no consolidation or evidence for pulmonary edema. Mild cardiomegaly is unchanged. IMPRESSION: 1. Linear bibasilar opacities suggestive of atelectasis. 2. Mild cardiomegaly. No evidence for pulmonary edema. ACT 112: Negative or not required by law. Electronically signed by: Kiko Cameron M.D. 02/15/2021 5:[address] 02/16/21 10:27 CT OF THE LEFT FEMUR WITHOUT CONTRAST CLINICAL HISTORY: periprosthetic hip fx; assess fx length COMPARISON STUDY: Left hip radiographs February 15, 2021. TECHNIQUE: Axial images of the left femur were obtained without IV contrast. Sagittal and coronal reconstructions were viewed. Automated exposure control was utilized for the study. A dose lowering technique was utilized adhering to the principles of ALARA. FINDINGS: Left hip arthroplasty is noted. Evaluation is mildly compromised due to streak artifact from the surgical hardware. The hardware is intact. Note is made of long vertical acute mildly distracted periprosthetic fracture of the left femur. Fracture extends from the proximal aspect of the femur to just beyond the midshaft of the left femur. The fracture is distracted 1 cm proximally. Fracture is within the sagittal plane. No additional fractures are identified on this examination. Acetabular screw is in place. Note is made of subcutaneous edema as well as subcutaneous fascial edema overlying the fastest lateral talus. This is postsurgical. No suspicious osseous lesions are noted. Alignment of the left knee is anatomic. There is moderate to severe medial compartment joint space narrowing. IMPRESSION: 1. Long vertical acute mildly distracted periprosthetic fracture of the left femur that extends from the proximal femur to just beyond the mid shaft. 2. Status post total left hip arthroplasty. Hardware intact. Subcutaneous edema and subfascial edema overlying the vastus lateralis which is post surgical. ACT 112: Negative or not required by law. Electronically signed by: Kiko Cameron M.D. 02/16/2021 1:15 PM (1) Fracture of prosthetic hip Encounter type: initial encounter Qualified Code(s): T84.019A - Broken internal joint prosthesis, unspecified site, initial encounter; Z96.649 - Presence of unspecified artificial hip joint
[2021-02-16] MEDS: MoRPHine SULFATE 2 MG/ML CARP IV PRN (15:24)
--- NOTE | 2021-02-16 16:00 | Electrocardiogram Report ---
Test Reason : Blood Pressure : / mmHG Vent. Rate : 077 BPM Atrial Rate : 077 BPM P-R Int : 000 ms QRS Dur : 092 ms QT Int : 372 ms P-R-T Axes : 000 074 056 degrees QTc Int : 420 ms Normal sinus rhythm with occasional Premature atrial complexes Otherwise Normal ECG When compared with ECG of 22-NOV-2020 13:03, No significant change Confirmed by Jed Storm ([id number]) on 02/16/2021 4:00:02 PM Referred By: REFERRED SELF Confirmed By:Jed Storm
--- NOTE | 2021-02-16 16:02 | Electrocardiogram Report ---
Test Reason : Blood Pressure : / mmHG Vent. Rate : 078 BPM Atrial Rate : 078 BPM P-R Int : 160 ms QRS Dur : 092 ms QT Int : 378 ms P-R-T Axes : 085 066 057 degrees QTc Int : 430 ms Normal sinus rhythm with sinus arrhythmia Normal ECG When compared with ECG of 15-FEB-2021 16:14, (unconfirmed) Sinus rhythm has replaced Junctional rhythm Confirmed by Jed Storm ([id number]) on 02/16/2021 4:01:39 PM Referred By: REFERRED SELF Confirmed By:Jed Storm
[2021-02-16] MEDS ORDERED: oxyCODONE HCL IR 5 MG TAB (IMMEDIATE RELEASE) PO PRN ×2 (16:57→19:11)
--- NOTE | 2021-02-16 18:23 | Hospitalist Progress Note ---
Date of Service February 16, 2021 Assessment & Plan (1) Fracture of prosthetic hip: S/p Left Total Hip Arthroplasty with Dr. Owens on 02/13/2021. Now with francine-prosthetic fracture. - Plan for revision. - Consulted orthopedics -> Plan for revision on Friday. Will retest Covid on Friday. (2) SARS-CoV-2 positive: Patient had COVID-19 in 09/2020. Had multiple negative testing since then. He has also been immunized x2. - Either 1) False positive or 2) Asymptomatic infection - Will retest tomorrow. If positive, will have to pursue surgery with Covid precautions. (3) Fall: This appears to be mechanical in nature related to his THR. No dizziness, chest pain or shortness of breath prior to falling to suggest need for further workup. (4) Chronic obstructive pulmonary disease: Continue TreKoalify Ellipta or hospital formulary equivalent. - No acute exacerbation (5) Hypertension: BP is 160/65. - Continue amlodipine 5mg PO daily (hold if sBP < 120 pre-operatively) (6) BPH (benign prostatic hyperplasia): Notable history of this. Not on medication. Ortiz catheter placed in the ER. - Monitor closely for post-Ortiz catheter urinary retention (7) On home oxygen therapy: Currently at baseline 3L 02. (8) DVT prophylaxis: Will defer for now; will start Lovenox after surgery. Admission and Anticipated Discharge Date Admission Date: February 15, 2021 Subjective Doing well today. Pain is overall controlled with medications. Reports no fevers/chills, chest pain, shortness of breath, abdominal pain, nausea, or vomiting. Physical Exam Constitutional: WD/WN, vitals as above Eyes: EOM intact bilaterally; no conjunctival abnormality ENMT: external ear and nose normal, oropharynx normal Neck: trachea midline, no thyromegaly normal visual inspection Respiratory: normal respiratory effort, lungs clear to auscultation no respiratory distress Cardiovascular: RRR, no murmur, no edema Gastrointestinal (Abdomen): Inspection/Auscultation: abdomen normal to inspection; abdomen not distended Musculoskeletal: no cyanosis or clubbing, extremities motor strength 5/5 Knee: + knee abnormal to inspection (Wound vac in place.) Skin: no rashes, warm and dry Neurologic: moves all extremities and awake Psychiatric: Orientation: alert, oriented to person and cooperative Results & Data Results & Data ([facility]) Vital Signs (Past 12 Hours) Vital Signs Temp Pulse Resp BP Pulse Ox 02/16/21 14:55 36.1 C L 75 18 160/64 H 95 02/16/21 07:58 36.5 C 71 18 148/69 H 95 PG Care Time/CCT Total # of Minutes Spent Total Time Spent with Patient: Total time spent is greater than 50% in coordination of care (as documented) at patient's floor/unit and/or counseling patient: Coding Level of Care Code 11207 Subseq Hosp Care Lvl 2 Diagnoses Fracture of prosthetic hip T84.019A; Z96.649 Encounter type: initial encounter SARS-CoV-2 positive U07.1 Fall W19.XXXA Encounter type: initial encounter Chronic obstructive pulmonary disease J44.9 COPD type: unspecified COPD Hypertension I10 BPH (benign prostatic hyperplasia) N40.0 Lower urinary tract symptom presence: symptoms absent On home oxygen therapy Z99.81 DVT prophylaxis Z29.9 (1) Fracture of prosthetic hip Encounter type: initial encounter Qualified Code(s): T84.019A - Broken internal joint prosthesis, unspecified site, initial encounter; Z96.649 - Presence of unspecified artificial hip joint (2) Fall Encounter type: initial encounter Qualified Code(s): W19.XXXA - Unspecified fall, initial encounter (3) BPH (benign prostatic hyperplasia) Lower urinary tract symptom presence: symptoms absent Qualified Code(s): N40.0 - Benign prostatic hyperplasia without lower urinary tract symptoms (4) Chronic obstructive pulmonary disease COPD type: unspecified COPD Qualified Code(s): J44.9 - Chronic obstructive pulmonary disease, unspecified
[2021-02-16] MEDS: SENNA 8.6 MG TAB PO SCH (20:01)
[2021-02-16] MEDS: DOCUSATE SODIUM/SENNA 50/8.6MG TAB PO SCH (20:01)
[2021-02-16] MEDS: HEPARIN SOD 5,000 UNIT/0.5 ML VIAL SQ SCH (20:01)
[2021-02-17] MEDS: LACTATED RINGER'S 1,000 ML IV SCH ×2 (03:09→15:02)
[2021-02-17 06:14] LABS: Hematocrit (blood only) 30.8 % (42-52); Hemoglobin 10.6 g/dL (14.0-18.0); Mean Corpuscular Hemoglobin 31.4 pg (25-34); Mean Corpuscular Hgb Conc 34.4 g/dL (32-36); Mean Corpuscular Volume 91.1 fL (80-100); Mean Platelet Volume 8.9 fL (7.4-10.4); Platelet Count 174 K/uL (130-400); Red Blood Count 3.38 M/uL (4.7-6.1); White Blood Count 7.13 K/uL (4.8-10.8)
[2021-02-17 06:51] LABS: BUN Creatinine Ratio 18.5 (10-20); Creatinine Clr Calc Pharmacy 129.2 ml/min; Est GFR (African American) 105.9; Est GFR (Non-African American) 91.4; Magnesium 2.1 mg/dl (1.8-2.4); Potassium 3.7 mmol/L (3.5-5.1)
[2021-02-17] MEDS: ACETAMINOPHEN 500 MG TAB PO PRN (07:30)
[2021-02-17] MEDS: MoRPHine SULFATE 4 MG/ML 1 ML CARP\\VIAL IV PRN (09:00)
[2021-02-17] MEDS: UMECLIDINIUM/VILANTEROL 62.5/25MCG 7 PUFFS/INHALER INH SCH (09:08)
[2021-02-17] MEDS: FLUTICASONE FUROATE 100MCG 14 PUFFS/INHALER INH SCH (09:08)
[2021-02-17] MEDS: CHOLECALCIFEROL 1,000 UNITS 25 MCG TAB PO SCH (09:08)
[2021-02-17] MEDS: HEPARIN SOD 5,000 UNIT/0.5 ML VIAL SQ SCH ×2 (09:09→20:42)
[2021-02-17] MEDS: amLODIPine BESYLATE 5 MG TAB PO SCH (09:09)
[2021-02-17] MEDS: oxyCODONE HCL IR 5 MG TAB (IMMEDIATE RELEASE) PO PRN ×3 (12:36→20:42)
[2021-02-17] MEDS ORDERED: CHLORASEPTIC 1.4% SOLN 180 ML BTL MT PRN (12:59)
--- NOTE | 2021-02-17 15:17 | Hospitalist Progress Note ---
Date of Service February 17, 2021 Assessment & Plan (1) Fracture of prosthetic hip: S/p Left Total Hip Arthroplasty with Dr. Owens on 02/13/2021. Now with francine-prosthetic fracture. - Plan for revision on Friday. - Consulted orthopedics -> Plan for revision on Friday. - Pain control. (2) SARS-CoV-2 positive: Patient had COVID-19 in 09/2020. Had multiple negative testing since then. He has also been immunized x2. - Either 1) False positive or 2) Asymptomatic infection - Retested today. Now that he is having mild symptoms, this is almost certainly a true-positive. (3) Fall: This appears to be mechanical in nature related to his THR. No dizziness, chest pain or shortness of breath prior to falling to suggest need for further workup. (4) Chronic obstructive pulmonary disease: Continue Teliportme EllipSecond Light or hospital formulary equivalent. - No acute exacerbation (5) Hypertension: BP is 160/65. - Continue amlodipine 5mg PO daily (6) BPH (benign prostatic hyperplasia): Notable history of this. Not on medication. Ortiz catheter placed in the ER. - Monitor closely for post-Ortiz catheter urinary retention (7) On home oxygen therapy: Currently at baseline 3L 02. (8) DVT prophylaxis: Will defer for now; will start Lovenox after surgery. Admission and Anticipated Discharge Date Admission Date: February 15, 2021 Subjective Having some more cough and sore throat today. Reports no fevers/chills, chest pain, shortness of breath, abdominal pain, nausea, or vomiting. Physical Exam Constitutional: WD/WN, vitals as above Eyes: EOM intact bilaterally; no conjunctival abnormality ENMT: external ear and nose normal, oropharynx normal Neck: trachea midline, no thyromegaly normal visual inspection Respiratory: normal respiratory effort, lungs clear to auscultation no respiratory distress Cardiovascular: RRR, no murmur, no edema Gastrointestinal (Abdomen): Inspection/Auscultation: abdomen normal to inspection; abdomen not distended Musculoskeletal: no cyanosis or clubbing, extremities motor strength 5/5 Knee: + knee abnormal to inspection (Wound vac in place.) Skin: no rashes, warm and dry Neurologic: moves all extremities and awake Psychiatric: Orientation: alert, oriented to person and cooperative Results & Data Results & Data ([place]) Vital Signs (Past 12 Hours) Vital Signs Temp Pulse Resp BP Pulse Ox Pulse Ox 02/17/21 15:09 95 02/17/21 14:56 36.6 C 69 16 157/66 H 95 02/17/21 09:07 138/63 02/17/21 07:30 95 02/17/21 07:28 36.7 C 71 16 157/71 H 95 PG Care Time/CCT Total # of Minutes Spent Total Time Spent with Patient: Total time spent is greater than 50% in coordination of care (as documented) at patient's floor/unit and/or counseling patient: Coding Level of Care Code 22776 Subseq Hosp Care Lvl 2 Diagnoses Fracture of prosthetic hip T84.019A; Z96.649 Encounter type: initial encounter SARS-CoV-2 positive U07.1 Fall W19.XXXA Encounter type: initial encounter Chronic obstructive pulmonary disease J44.9 COPD type: unspecified COPD Hypertension I10 BPH (benign prostatic hyperplasia) N40.0 Lower urinary tract symptom presence: symptoms absent On home oxygen therapy Z99.81 DVT prophylaxis Z29.9 (1) Fracture of prosthetic hip Encounter type: initial encounter Qualified Code(s): T84.019A - Broken internal joint prosthesis, unspecified site, initial encounter; Z96.649 - Presence of unspecified artificial hip joint (2) Fall Encounter type: initial encounter Qualified Code(s): W19.XXXA - Unspecified fall, initial encounter (3) Chronic obstructive pulmonary disease COPD type: unspecified COPD Qualified Code(s): J44.9 - Chronic obstructive pulmonary disease, unspecified (4) BPH (benign prostatic hyperplasia) Lower urinary tract symptom presence: symptoms absent Qualified Code(s): N40.0 - Benign prostatic hyperplasia without lower urinary tract symptoms
[2021-02-17 15:56] LABS: Influenza A virus by PCR Negative (Neg); Influenza B virus by PCR Negative (Neg); RSV by PCR Negative (Neg)
[2021-02-17 16:00] LABS: SARS CoV2 RNA(COVID-19) InHosp POSITIVE (Negative)
[2021-02-17] MEDS: DOCUSATE SODIUM/SENNA 50/8.6MG TAB PO SCH (20:42)
[2021-02-17] MEDS: MoRPHine SULFATE 2 MG/ML CARP IV PRN (22:17)
[2021-02-17] MEDS: SENNA 8.6 MG TAB PO SCH (22:17)
[2021-02-18] MEDS: oxyCODONE HCL IR 5 MG TAB (IMMEDIATE RELEASE) PO PRN ×5 (00:40→19:29)
[2021-02-18] MEDS: LACTATED RINGER'S 1,000 ML IV SCH ×2 (03:24→15:36)
[2021-02-18] MEDS: MoRPHine SULFATE 2 MG/ML CARP IV PRN ×2 (03:25→12:29)
[2021-02-18] MEDS: UMECLIDINIUM/VILANTEROL 62.5/25MCG 7 PUFFS/INHALER INH SCH (08:25)
[2021-02-18] MEDS: FLUTICASONE FUROATE 100MCG 14 PUFFS/INHALER INH SCH (08:25)
[2021-02-18] MEDS: amLODIPine BESYLATE 5 MG TAB PO SCH (08:26)
[2021-02-18] MEDS: CHOLECALCIFEROL 1,000 UNITS 25 MCG TAB PO SCH (08:26)
[2021-02-18] MEDS: HEPARIN SOD 5,000 UNIT/0.5 ML VIAL SQ SCH ×2 (08:27→21:56)
--- NOTE | 2021-02-18 09:52 | Orthopedic Progress Note ---
Date of Service February 18, 2021 Assessment & Plan (1) Janee-prosthetic femoral shaft fracture: Planning for ORIF of left proximal femur fracture with revision of left total hip arthroplasty femoral stem and head tomorrow. CBC and BMP redrawn. N.p.o. after midnight. Heparin is to be stopped after 9 PM dose tonight. Continue current pain management. Admission and Anticipated Discharge Date Admission Date: February 15, 2021 Subjective Patient awake and alert this morning. Watching TV. He states that his pain has changed a little bit to a dull ache rather than sharp and stabbing quality. No other complaints. Pain medications are helping. Difficulty using the bedpan for having a bowel movement because of pain etc. States he still passing gas. He is not uncomfortable in the abdomen at this point in time. Denies any increase in his normal shortness of breath. Denies chest pain or lightheadedness. Physical Exam Physical Exam: Left thigh has some swelling but is soft. Mild tenderness on palpation. Calves are soft and nontender. Neurovascular is intact. Toes are mobile. He has good dorsiflexion and plantarflexion of the left foot and sensation is intact. Cap refills less than 2 seconds. Results & Data ([facility]) Vital Signs (Past 12 Hours) Vital Signs Temp Pulse Resp BP Pulse Ox 02/18/21 08:19 36.8 C 78 16 128/56 L 92 02/18/21 06:25 36.7 C 75 20 149/69 H 93
[2021-02-18 10:15] LABS: Basophils # (auto) 0.01 K/uL (0-0.2); Basophils % (auto) 0.1 %; Eosinophils # (auto) 0.25 K/uL (0-0.5); Eosinophils % (auto) 3.1 %; Hematocrit (blood only) 31.8 % (42-52); Hemoglobin 10.9 g/dL (14.0-18.0); Immature Granulocytes # (auto) 0.01 K/uL (0.00-0.02); Immature Granulocytes % (auto) 0.1 %; Lymphocytes # (auto) 1.16 K/uL (1.2-3.4); Lymphocytes % (auto) 14.5 %; Mean Corpuscular Hemoglobin 31.5 pg (25-34); Mean Corpuscular Hgb Conc 34.3 g/dL (32-36); Mean Corpuscular Volume 91.9 fL (80-100); Mean Platelet Volume 8.7 fL (7.4-10.4); Monocytes % (auto) 11.3 %; Neutrophils # (auto) 5.65 K/uL (1.4-6.5); Neutrophils % (auto) 70.9 %; Platelet Count 186 K/uL (130-400); RDW Coefficient of Variation 13.9 % (11.5-14.5); RDW Standard Deviation 45.9 fL (36.4-46.3); Red Blood Count 3.46 M/uL (4.7-6.1); White Blood Count 7.98 K/uL (4.8-10.8)
[2021-02-18 10:32] LABS: BUN Creatinine Ratio 15.6 (10-20); Calcium 7.9 mg/dl (8.5-10.1); Creatinine Clr Calc Pharmacy 113.6 ml/min; Est GFR (African American) 100.5; Est GFR (Non-African American) 86.7; Potassium 4.2 mmol/L (3.5-5.1)
--- NOTE | 2021-02-18 15:56 | Hospitalist Progress Note ---
Date of Service February 18, 2021 Assessment & Plan (1) Fracture of prosthetic hip: S/p Left Total Hip Arthroplasty with Dr. Owens on 02/13/2021. Now with francine-prosthetic fracture. - Consulted orthopedics -> Plan for revision on Friday. - Pain control - Will decrease period between doses to help. (2) SARS-CoV-2 positive: Patient had COVID-19 in 09/2020. Had multiple negative testing since then. He has also been immunized x2. - Minimal symptoms. In present state, I do not think it appreciably increases his risk of surgery; however, will closely monitor. (3) Fall: This appears to be mechanical in nature related to his THR. No dizziness, chest pain or shortness of breath prior to falling to suggest need for further workup. (4) Chronic obstructive pulmonary disease: Continue Trelegy Ellipta or hospital formulary equivalent. - No acute exacerbation (5) Hypertension: BP is 155/75. - Continue amlodipine 5mg PO daily (6) BPH (benign prostatic hyperplasia): Notable history of this. Not on medication. Ortiz catheter placed in the ER. - Monitor closely for post-Ortiz catheter urinary retention (7) On home oxygen therapy: Currently at baseline 3L 02. (8) DVT prophylaxis: Will defer for now; will start Lovenox after surgery. Admission and Anticipated Discharge Date Admission Date: February 15, 2021 Subjective Lots of pain today. The pain medication does help, but it wears off. Not willing to use a bedside commode or attempt the bathroom. Some mild cough. Reports no fevers/chills, chest pain, shortness of breath, abdominal pain, nausea, or vomiting. Physical Exam Constitutional: WD/WN, vitals as above Eyes: EOM intact bilaterally; no conjunctival abnormality ENMT: external ear and nose normal, oropharynx normal Neck: trachea midline, no thyromegaly normal visual inspection Respiratory: normal respiratory effort, lungs clear to auscultation no respiratory distress Cardiovascular: RRR, no murmur, no edema Gastrointestinal (Abdomen): Inspection/Auscultation: abdomen normal to inspection; abdomen not distended Musculoskeletal: no cyanosis or clubbing, extremities motor strength 5/5 Knee: + knee abnormal to inspection (Wound vac in place.) Skin: no rashes, warm and dry Neurologic: moves all extremities and awake Psychiatric: Orientation: alert, oriented to person and cooperative Results & Data Results & Data ([facility]) Vital Signs (Past 12 Hours) Vital Signs Temp Pulse Resp BP Pulse Ox Pulse Ox 02/18/21 15:37 94 02/18/21 15:31 36.8 C 74 18 156/72 H 94 02/18/21 08:19 36.8 C 78 16 128/56 L 92 02/18/21 08:15 92 02/18/21 06:25 36.7 C 75 20 149/69 H 93 PG Care Time/CCT Total # of Minutes Spent Total Time Spent with Patient: Total time spent is greater than 50% in coordination of care (as documented) at patient's floor/unit and/or counseling patient: Coding Level of Care Code 15460 Subseq Hosp Care Lvl 2 Diagnoses Fracture of prosthetic hip T84.019A; Z96.649 Encounter type: initial encounter SARS-CoV-2 positive U07.1 Fall W19.XXXA Encounter type: initial encounter Chronic obstructive pulmonary disease J44.9 COPD type: unspecified COPD Hypertension I10 BPH (benign prostatic hyperplasia) N40.0 Lower urinary tract symptom presence: symptoms absent On home oxygen therapy Z99.81 DVT prophylaxis Z29.9 (1) Fracture of prosthetic hip Encounter type: initial encounter Qualified Code(s): T84.019A - Broken internal joint prosthesis, unspecified site, initial encounter; Z96.649 - Presence of unspecified artificial hip joint (2) Fall Encounter type: initial encounter Qualified Code(s): W19.XXXA - Unspecified fall, initial encounter (3) Chronic obstructive pulmonary disease COPD type: unspecified COPD Qualified Code(s): J44.9 - Chronic obstructive pulmonary disease, unspecified (4) BPH (benign prostatic hyperplasia) Lower urinary tract symptom presence: symptoms absent Qualified Code(s): N40.0 - Benign prostatic hyperplasia without lower urinary tract symptoms
--- NOTE | 2021-02-18 20:40 | XRay Report ---
LEFT FEMUR 2 VIEWS CLINICAL HISTORY: Follow-up periprosthetic fracture. Increasing pain. FINDINGS: AP and crosstable lateral views of the left femur are compared to study dated 02/15/2021. The skeletal structures are osteopenic. A bipolar left hip arthroplasty is in near-anatomic alignment. T here is unchanged alignment of a minimally displaced periprosthetic fracture around the distal stem o f the arthroplasty and the mid femoral shaft. The distal femur appears intact. Skin clips, a surgical drain, and soft tissue swelling are expected postoperative findings. IMPRESSION: Unchanged alignment of a periprosthetic fracture as compared to 02/15/2021. Electronically signed by: Laci Gao M.D. 02/18/2021 8:38 PM
[2021-02-18] MEDS: SENNA 8.6 MG TAB PO SCH (21:56)
[2021-02-18] MEDS: DOCUSATE SODIUM/SENNA 50/8.6MG TAB PO SCH (21:56)
[2021-02-19] MEDS: oxyCODONE HCL IR 5 MG TAB (IMMEDIATE RELEASE) PO PRN ×5 (00:57→23:57)
[2021-02-19] MEDS: LACTATED RINGER'S 1,000 ML IV SCH ×2 (03:02→20:49)
[2021-02-19] MEDS ORDERED: VANCOMYCIN HCL 2,000 MG in SODIUM CHLORIDE 0.9% 500 ML IV SCH (06:00)
[2021-02-19 06:06] LABS: Basophils # (auto) 0.01 K/uL (0-0.2); Basophils % (auto) 0.1 %; Eosinophils # (auto) 0.25 K/uL (0-0.5); Eosinophils % (auto) 3.4 %; Hematocrit (blood only) 30.1 % (42-52); Hemoglobin 10.4 g/dL (14.0-18.0); Immature Granulocytes # (auto) 0.02 K/uL (0.00-0.02); Immature Granulocytes % (auto) 0.3 %; Lymphocytes # (auto) 1.31 K/uL (1.2-3.4); Lymphocytes % (auto) 17.6 %; Mean Corpuscular Hemoglobin 31.3 pg (25-34); Mean Corpuscular Hgb Conc 34.6 g/dL (32-36); Mean Corpuscular Volume 90.7 fL (80-100); Mean Platelet Volume 8.7 fL (7.4-10.4); Monocytes # (auto) 0.82 K/uL (0.11-0.59); Neutrophils # (auto) 5.03 K/uL (1.4-6.5); Neutrophils % (auto) 67.6 %; Platelet Count 216 K/uL (130-400); RDW Coefficient of Variation 13.8 % (11.5-14.5); RDW Standard Deviation 45.8 fL (36.4-46.3); Red Blood Count 3.32 M/uL (4.7-6.1); White Blood Count 7.44 K/uL (4.8-10.8)
[2021-02-19] MEDS ORDERED: VANCOMYCIN CONSULT ACTIVE PRN ×2 (06:13→20:20)
[2021-02-19 06:44] LABS: BUN Creatinine Ratio 17.8 (10-20); Creatinine Clr Calc Pharmacy 129.2 ml/min; Est GFR (African American) 105.9; Est GFR (Non-African American) 91.4; Potassium 4.1 mmol/L (3.5-5.1)
[2021-02-19] MEDS ORDERED: BUPIVACAINE 0.5 % 5 MG/1 ML PF 10ML VIAL ONE (07:21)
[2021-02-19] MEDS: FLUTICASONE FUROATE 100MCG 14 PUFFS/INHALER INH SCH (11:08)
[2021-02-19] MEDS: UMECLIDINIUM/VILANTEROL 62.5/25MCG 7 PUFFS/INHALER INH SCH (11:08)
[2021-02-19] MEDS: amLODIPine BESYLATE 5 MG TAB PO SCH (11:10)
[2021-02-19] MEDS: CHOLECALCIFEROL 1,000 UNITS 25 MCG TAB PO SCH (11:10)
--- NOTE | 2021-02-19 11:57 | Anesthesiology Consultation ---
Date of Service February 19, 2021 Assessment & Plan (1) Encounter for pre-operative examination: History Surgery Operation Date: 02/19/21 13:55 Proposed Procedures p Left Open Reduction Internal Fixation Periprosthetic Femur Fracture with Total Hip Arthropalsty Revision - Rafael Owens DO Height/Weight Height: 6 ft 2 in Weight: 133.9 kg Allergies Allergy/AdvReac Type Severity Reaction Status Date / Time atorvastatin AdvReac Intermediate Myalgia Verified 02/15/21 17:07 Medications Home Medications Medication Instructions Recorded Confirmed Last Taken amlodipine 5 mg PO QAM #0 12/08/14 02/15/21 02/13/21 04:00 cholecalciferol (vitamin D3) 2,000 unit PO QAM 90 Days #90 cap 11/22/15 02/15/21 02/11/21 Trelegy Ellipta 1 inh INHALATION QAM 11/16/20 02/15/21 02/13/21 04:00 aspirin 81 mg PO BID #56 tab 02/13/21 02/15/21 Unknown oxycodone 5 mg PO Q6H PRN #30 tab 02/13/21 02/15/21 Unknown acetaminophen 1,000 mg PO Q8H PRN 02/15/21 02/15/21 Unknown albuterol sulfate [ProAir HFA] 1 puff INHALATION QID PRN 02/15/21 02/15/21 Unknown levocetirizine 5 mg PO QAM 02/15/21 02/15/21 Unknown potassium 198 mg PO BID 02/15/21 02/15/21 Unknown sennosides [Senokot] 17.2 mg PO HS PRN 02/15/21 02/15/21 Unknown Active Medications Generic Name Dose Route Start Last Admin Trade Name Freq PRN Reason Stop Dose Admin Acetaminophen 1,000 mg 02/15/21 22:32 02/17/21 07:30 Acetaminophen 500 Mg Tab PO 03/17/21 22:31 1,000 mg Q8H PRN Administration Headache Amlodipine Besylate 5 mg 02/16/21 09:00 02/19/21 11:10 Amlodipine Besylate 5 Mg Tab PO 03/18/21 08:59 5 mg QAM ISMAEL Administration Fluticasone Furoate 1 puffs 02/16/21 09:00 02/19/21 11:08 Fluticasone Furoate 100mcg 14 Puffs/Inhaler INH 03/18/21 08:59 1 puffs QAM ISMAEL Administration Guaifenesin/Codeine Phosphate 10 ml 02/17/21 12:59 02/19/21 11:09 Guaifenesin/Codeine 200mg/20mg 10ml Udc PO 03/19/21 12:58 10 ml Q6H PRN Administration Cough Lactated Ringer's 1,000 mls @ 80 mls/hr 02/16/21 00:15 02/19/21 03:02 Lr IV 03/18/21 00:14 80 mls/hr .[id number] ISMAEL Administration Miscellaneous 1 ea 02/16/21 08:00 02/19/21 11:25 Levocetirizine~Order Awaiting Action N/A 03/18/21 07:59 Not Given QS ISMAEL Morphine Sulfate 2 mg 02/15/21 23:42 02/18/21 12:29 Morphine Sulfate 2 Mg/Ml Carp IV 03/01/21 23:41 2 mg Q3H PRN Administration Pain (1,2,3,4,5) & Pre PT Morphine Sulfate 4 mg 02/15/21 23:42 02/17/21 09:00 Morphine Sulfate 4 Mg/Ml 1 Ml Carp\Vial IV 03/01/21 23:41 4 mg Q3H PRN Administration Pain (6,7,8,9,10) Oxycodone HCl 5 - 10 mg 02/18/21 16:30 02/19/21 08:06 Oxycodone Hcl Ir 5 Mg Tab (Immediate Release) PO 03/03/21 10:43 10 mg Q3H PRN Administration Pain Phenol 2 sprays 02/17/21 12:59 02/17/21 15:02 Chloraseptic 1.4% Soln 180 Ml Btl MT 03/19/21 12:58 2 sprays QID PRN Administration Sore Throat Senna/Docusate Sodium 2 tab 02/16/21 21:00 02/18/21 21:56 Docusate Sodium/Senna 50/8.6mg Tab PO 03/18/21 20:59 2 tab HS ISMAEL Administration Sennosides 17.2 mg 02/16/21 21:00 02/18/21 21:56 Senna 8.6 Mg Tab PO 03/18/21 20:59 Not Given HS ISMAEL Umeclidinium/Vilanterol 1 puffs 02/16/21 09:00 02/19/21 11:08 Umeclidinium/Vilanterol 62.5/25mcg 7 Puffs/Inhaler INH 03/18/21 08:59 1 puffs QAM ISMAEL Administration Vitamin D 2,000 units 02/16/21 09:00 02/19/21 11:10 Cholecalciferol 1,000 Units 25 Mcg Tab PO 03/18/21 08:59 2,000 units QAM ISMAEL Administration NPO Date Last Intake of Fluids: 02/18/21 Time Last Intake of Fluids: 23:59 Last Intake of Fluids Comment: sips with meds overnight Date Last Intake of Solids: 02/18/21 Time Last Intake of Solids: 23:59 Past Medical History Medical History BPH (benign prostatic hyperplasia) Chronic back pain Chronic obstructive pulmonary disease stable History of COVID-19 dx 09/28/20 ([facility]), body aches, dyspnea, mild fever > recovered to baseline Hypertension Obesity On home oxygen therapy 3L/MIN NC PRN (uses often) Osteoarthritis Past Surgical History Surgical History H/O colonoscopy H/O hemorrhoidectomy History of cardiac cath 2012 (for abnormal stress test) > no stents History of herniorrhaphy History of repair of rotator cuff Left History of tooth extraction History of total hip arthroplasty R MARYELLEN, plus revision Previous back surgery L2-L3 decompression/fusion L1-L2 decomp, T12-L2 fusion (2015) S/P hip replacement S/P TURP Social History Smoking Status: Former smoker tobacco type: cigarettes Smoking cigarettes per day: Quit 2007. Do You Dip or Chew Tobacco: No Hx Alcohol Use: Yes Alcohol type: beer alcohol intake frequency: holidays/special occasions only Hx Substance Use: No substance use type: does not use Physical Exam Vital Signs Last Vital Signs Temp 36.5 C 02/19/21 08:05 Pulse 72 02/19/21 08:05 Resp 16 02/19/21 08:05 BP 131/71 02/19/21 08:05 Pulse Ox 94 02/19/21 08:05 Testing Laboratory Results 02/19/21 05:25 02/19/21 05:25 PT 10.2 Seconds (9.0-12.0) 02/15/21 16:16 INR 1.0 (0.9-1.1) 02/15/21 16:16 APTT 24.2 Seconds (21.0-31.0) 02/15/21 16:16 Urine Color Yellow 02/15/21 18:08 Urine Appearance Clear (Clear) 02/15/21 18:08 Urine pH 6.0 (4.5-7.5) 02/15/21 18:08 Ur Specific [place] 1.020 (1.000-1.030) 02/15/21 18:08 Urine Protein Negative (Negative) 02/15/21 18:08 Urine Glucose (UA) Negative (Negative) 02/15/21 18:08 Urine Ketones 2+ (Negative) H 02/15/21 18:08 Urine Nitrite Negative (Negative) 02/15/21 18:08 Ur Leukocyte Esterase Negative (Negative) 02/15/21 18:08 Blood Type A Positive 02/15/21 17:58 Antibody Screen NEGATIVE 02/15/21 17:58 Electrocardiogram Date: 02/15/21 Normal sinus rhythm with occasional Premature atrial complexes Otherwise Normal ECG When compared with ECG of 22-NOV-2020 13:03, No significant change Chest X-Ray Date: 02/15/21 IMPRESSION: 1. Linear bibasilar opacities suggestive of atelectasis. 2. Mild cardiomegaly. No evidence for pulmonary edema.
[2021-02-19] MEDS ORDERED: ROCURONIUM BROMIDE 10 MG/ML 5 ML VIAL IV ONE ×7 (12:52→17:03)
[2021-02-19] MEDS ORDERED: ONDANSETRON INJ 2 MG/ML 2 ML VIAL ONE (12:52)
[2021-02-19] MEDS ORDERED: PROPOFOL IV EMULSION 10 MG/ML 20 ML VIAL IV ONE (12:52)
[2021-02-19] MEDS ORDERED: LIDOCAINE HCL 2% 2 ML VIAL/AMP(20MG/ML) INFIL ONE (12:52)
[2021-02-19] MEDS ORDERED: fentaNYL citrate 100 MCG/2 ML VIAL ONE ×3 (12:53→18:27)
[2021-02-19] MEDS ORDERED: MIDAZOLAM HCL 1 MG/ML 2ML VIAL ONE (12:53)
[2021-02-19] MEDS ORDERED: BUPIVACAINE 0.5 % 5 MG/1 ML MPF 30ML VIAL ONE (13:08)
[2021-02-19] MEDS ORDERED: EPINEPHrine INJ 1 MG/ML AMP ONE (13:08)
[2021-02-19] MEDS ORDERED: BACITRACIN INJ 50,000 UNIT VIAL ONE (13:45)
[2021-02-19] MEDS ORDERED: SODIUM CHLORIDE 0.9% 250 ML IV PRN (14:16)
--- NOTE | 2021-02-19 14:16 | History & Physical Bridge Note ---
Date of Service February 19, 2021 History & Physical Bridge Note I have examined the patient, reviewed the History & Physical and in the interval since the performance of the History & Physical I have noted the following changes of clinical significance: no changes noted
[2021-02-19] MEDS ORDERED: KETAMINE 50 MG/5 ML SYRINGE ONE (14:23)
[2021-02-19] MEDS ORDERED: ROPIVACAINE 0.5% HCL/PF 150 MG, BUPIVACAINE 0.75% MPF 20 ML, EPINEPHrine 0.15 MG, Ketor... INFIL SCH (14:30)
--- NOTE | 2021-02-19 14:55 | Hospitalist Progress Note ---
Date of Service February 19, 2021 Assessment & Plan (1) Fracture of prosthetic hip: S/p Left Total Hip Arthroplasty with Dr. Owens on 02/13/2021. Now with francine-prosthetic fracture. - Pain control - Will decrease period between doses to help. - Consulted orthopedics -> Plan for revision today. Will monitor post-op. (2) SARS-CoV-2 positive: Patient had COVID-19 in 09/2020. Had multiple negative testing since then. He has also been immunized x2. - Minimal symptoms. In present state, I do not think it appreciably increases his risk of surgery; however, will closely monitor. (3) Fall: This appears to be mechanical in nature related to his THR. No dizziness, chest pain or shortness of breath prior to falling to suggest need for further workup. (4) Chronic obstructive pulmonary disease: Continue Trelegy Ellipta or hospital formulary equivalent. - No acute exacerbation (5) Hypertension: BP is 130/70. - Continue amlodipine 5mg PO daily (6) BPH (benign prostatic hyperplasia): Notable history of this. Not on medication. Ortiz catheter placed in the ER. - Monitor closely for post-Ortiz catheter urinary retention (7) On home oxygen therapy: Currently at baseline 3L 02. (8) DVT prophylaxis: Will defer for now; will start Lovenox after surgery. Admission and Anticipated Discharge Date Admission Date: February 15, 2021 Subjective Doing well today. Less pain in the leg. Reports no fevers/chills, chest pain, shortness of breath, abdominal pain, nausea, or vomiting. Physical Exam Constitutional: WD/WN, vitals as above Eyes: EOM intact bilaterally; no conjunctival abnormality ENMT: external ear and nose normal, oropharynx normal Neck: trachea midline, no thyromegaly normal visual inspection Respiratory: normal respiratory effort, lungs clear to auscultation no respiratory distress Cardiovascular: RRR, no murmur, no edema Gastrointestinal (Abdomen): Inspection/Auscultation: abdomen normal to inspection; abdomen not distended Musculoskeletal: no cyanosis or clubbing, extremities motor strength 5/5 Knee: + knee abnormal to inspection (Wound vac in place.) Skin: no rashes, warm and dry Neurologic: moves all extremities and awake Psychiatric: Orientation: alert, oriented to person and cooperative Results & Data Results & Data ([facility]) Vital Signs (Past 12 Hours) Vital Signs Temp Pulse Resp BP Pulse Ox 02/19/21 08:05 36.5 C 72 16 131/71 94 02/19/21 03:04 95 PG Care Time/CCT Total # of Minutes Spent Total Time Spent with Patient: Total time spent is greater than 50% in coordination of care (as documented) at patient's floor/unit and/or counseling patient: Coding Level of Care Code 55007 Subseq Hosp Care Lvl 2 Diagnoses Fracture of prosthetic hip T84.019A; Z96.649 Encounter type: initial encounter SARS-CoV-2 positive U07.1 Fall W19.XXXA Encounter type: initial encounter Chronic obstructive pulmonary disease J44.9 COPD type: unspecified COPD Hypertension I10 BPH (benign prostatic hyperplasia) N40.0 Lower urinary tract symptom presence: symptoms absent On home oxygen therapy Z99.81 DVT prophylaxis Z29.9 (1) Fracture of prosthetic hip Encounter type: initial encounter Qualified Code(s): T84.019A - Broken internal joint prosthesis, unspecified site, initial encounter; Z96.649 - Presence of unspecified artificial hip joint (2) Fall Encounter type: initial encounter Qualified Code(s): W19.XXXA - Unspecified fall, initial encounter (3) Chronic obstructive pulmonary disease COPD type: unspecified COPD Qualified Code(s): J44.9 - Chronic obstructive pulmonary disease, unspecified (4) BPH (benign prostatic hyperplasia) Lower urinary tract symptom presence: symptoms absent Qualified Code(s): N40.0 - Benign prostatic hyperplasia without lower urinary tract symptoms
[2021-02-19] MEDS ORDERED: SUGAMMADEX SODIUM 200 MG/2 ML VIAL IV ONE (15:30)
[2021-02-19 17:57] LABS: iSTAT Creatinine 0.9 mg/dl (0.6-1.3); iSTAT Hemoglobin 10.2 g/dl (14.0-18.0); iSTAT Ionized Calcium 1.1 mmol/l (1.12-1.32)
[2021-02-19] MEDS ORDERED: ATROPINE SULFATE 0.1 MG/ML 10ML SYR IV PRN (18:27)
[2021-02-19] MEDS ORDERED: ePHEDrine sulfate 50 MG/ML AMP IV PRN (18:27)
[2021-02-19] MEDS ORDERED: fentaNYL citrate 100 MCG/2 ML VIAL IV PRN (18:27)
[2021-02-19] MEDS ORDERED: HYDROmorphone INJ 1 MG/ML SYRINGE ONE (18:27)
[2021-02-19] MEDS ORDERED: HYDROmorphone INJ 1 MG/ML SYRINGE IV PRN (18:27)
[2021-02-19] MEDS ORDERED: ONDANSETRON INJ 2 MG/ML 2 ML VIAL IV PRN (18:27)
--- NOTE | 2021-02-19 18:34 | Post Operative Brief Note ---
Immediate Post Op Note v1 Date of Surgery February 19, 2021 Pre & Post Diagnosis Operation Date: 02/19/21 13:55 Pre-Op Diagnosis: Janee-prosthetic femoral shaft fracture Post-Op Diagnosis: Janee-prosthetic femoral shaft fracture I identified the patient and participated in the time-out.: Yes Procedure Operation Date: 02/19/21 13:55 Actual Procedures p Revision Left total hip arthroplasty - femur - DO miah Quiroz ORIF left femur s Removal of hardware, femoral prosthesis Surgeon Rafael Owens DO Care Manager Cna Joseph Warner Estimated Blood Loss 750 Findings Consistent with Post-Op Diagnosis Fluids see anesthesia report Drains Ortiz Catheter and Hemovac Drain Anesthesia Type General Complications none Disposition Disposition: Recovery Room Overlapping Procedure I was present for: the critical portions of procedure. I was immediately available: during the entire case. Back up surgeon: was not required during procedure.
--- NOTE | 2021-02-19 18:36 | Operative Report ---
Post Operative Report Pre & Post Diagnosis Operation Date: 02/19/21 13:55 Pre-Op Diagnosis: Janee-prosthetic femoral shaft fracture Post-Op Diagnosis: Janee-prosthetic femoral shaft fracture I identified the patient and participated in the time-out.: Yes Procedure Operation Date: 02/19/21 13:55 Actual Procedures p Revision left total hip arthroplasty - femur - DO miah Quiroz Open reduction internal fixation of the femur s Removal of hardware Surgeon Rafael Owens DO Paint Booth Operator Joseph Warner Estimated Blood Loss 750 Findings Consistent with Post-Op Diagnosis Specimens None Anesthesia Type General Complications none Disposition Disposition: Recovery Room Indications The patient is a 75-year-old male who recently underwent left total hip arthroplasty on 02/13/2021. Prior to his discharge on his first postoperative day, patient experienced his left knee giving out and caught himself and having some question of mild hip discomfort which improved as the day went on. He apparently was trying to use a portable urinal and dropped the bottle during the incident. He underwent his physical therapy as well as occupational therapy and was felt he was stable for discharge. Pain at this time was 3/10. The patient states that at home, he was having some difficulty with some discomfort in the hip and at one point in the day. He reporst getting up at night multiple times and one incidence where he dropped the incisional vac device and tried to catch it, reported a twist and a stumble but now fall. He felt and heard a loud pop which caused him moderate pain and for his knee to give out as well. He was unable to ambulate or put weight on the left lower extremity. He states he was able to lower himself into a chair. He was brought to the emergency room here at [facility] and x-rays were taken. It was found that he had a periprosthetic hip fracture of the left hip. Incidentally, a Covid test was then also taken and was found to be positive even though he was negative several days prior. He was admitted to an isolation room with the above-noted fracture. I have indicated the patient for revision left total hip replacement, ORIF of the femur. The risks, benefits and complications of surgery were explained to the patient which include but not limited to infection, acute blood loss, DVT/PE, injury to nerves, vessels, bone, soft tissue, arthrofibrosis, chronic pain, failure of the prosthesis, hip dislocation, leg length discrepancy, need for additional surgery, cardiac and pulmonary events and . The patient wished to proceed with surgery and informed consent was obtained at this time. We will plan for Lovedamarisx post-operatively for DVT prophylaxis. Description of Procedure Following induction of adequate general anesthesia, the patient was transferred to the OR table and placed in lateral decubitus position with right hip down. The left hip was prepped and draped in the typical sterile fashion. A timeout was performed, patient identified, site david verified and appropriate antibiotics were given. A posterolateral/Alma-Langenbeck incision was made inline with the previous incision. Subcutaneous tissue was sharply dissected. Electrocautery was utilized for hemostasis. The fascia was incised throughout the length of the wound and retracted with the Charnley retractor. Retained suture from previous surgery was removed. The bursa was taken down and the short external rotators and capsule were identified and tagged with two #1 Vicryl sutures. The short external rotators and capsule were divided from the posterior aspect of the femur using electrocautery. Both external rotators and posterior capsule were swept posterior and protected, along with protecting the sciatic nerve. Meticulous removal of intra-articular scar tissue was performed with bovie. The incision was extended distally to gain adequate exposure of the entire fracture. A single 1.8 mm Alex cable was placed at the level of the distal fracture and secured into place with tensioner The hip prosthesis was carefully dislocated by flexion and internal rotation in a controlled manner. The femoral head was removed from the trunion. Carefully we removed all soft tissue debris and bone near the proximal aspect of the stem. The stem was grossly loose and easily removed without any additional bone loss. Next we turned our attention back to the fracture. Soft tissue around the fracture was removed and the fracture site was cleared of all debris and retained blood clot. Three 1.8 mm Alex cable were placed proximal to the previous cable and secured into place with tensioners. The fracture fragment was easily reduced. All the cables were held in place with retensioning bits. The retensioning bits were locked and held in place temporarily. Next, exposure of the acetabulum was obtained. Additional scar tissue removal and debridement of the intra-articular soft tissue was performed. Acetabular c up and liner stability was assessed and found to be stable and without signs of loosening or wear. Access to the femoral canal was gained with single starter reamer on T-handle. Sequential reaming was performed by hand to a size 14 mm reamer and a depth of 250 mm. Good cortical bone chatter was appreciated. C-arm fluoroscopy was brought in at this time with reamer in place and Xrays were obtained verifying depth and fit as well as fracture reduction. Once satisfied, the final reamer was removed and the canal was thoroughly irrigated with sterile saline with bacitracin and a final [id number] bowed STS distal stem was inserted and impacted into place. The guide otis was left in place and proximal femur preparation was performed by reaming sequentially to a size D and a depth of 60mm. Good cortical chatter was appreciated. The guide rode was removed and a trial cone body size D 60mm with extended neck was inserted with appropriate version. A 36-3 femoral head was placed onto the neck and a trial reduction was carried out. The hip was found to be stable in all degrees of rotation with hip flexion and extension with no impingement and leg lengths were equal. The hip was dislocated once more, trial components were removed. Access to the proximal femur was once more gained and irrigated with sterile saline solution was bacitracin and the final Size D 60mm cone body with extended neck length was impacted into place until well seated with good fit and fill of the proximal femur with appropriate version. The fracture site was reassessed and found to be in good position and the cables were retensioned and locked into place sequentially and excess cables cut. A 36-3 mm femoral head was impacted into place and the hip was reduced. Range of motion was checked once again and found to be stable. Utilizing intraoperative C-arm fluoroscopy an x-ray was obtained at this time to assess positioning and fracture reduction. The stem surpassed the distal fracture site by at least 2 cortical diameter widths. A Betadine soak was performed at this time for 3 minutes and the wound was copiously irrigated with sterile saline solution with bacitracin. The janee-incisional soft tissue was injected utilizing [facility] [place] ortho mix which includes a combination of Ropivicaine 0.5% 150mg, Bupivicaine 0.5%/Epinephrine 1:200,000 30ml, Toradol 30mg, Dexamethasone 4mg, Ketamine 10mg, Clonidine 100mcg and NSS 30ml solution. The external rotators, capsule were repaired to the greater trochanter through bone tunnels using #5 FiberWire. Hemovac drain placed deep and superficial to fascial layer. The fascia was closed using #1 Vicryl, subcutaneous tissue was closed using 2-0 Vicryl, and skin was closed with sloan. Sterile dressings were applied which included Xeroform, 4x4s, ABDs, drain sponges and foam tape. A abduction pillow was placed between the legs. The patient tolerated the procedure well and was transported to PACU in stable condition. Due to the complex nature of the procedure, the entire surgery was performed with the operational assistance of Joseph Warner PA-C. The loan assistant, under direct supervision, was involved in the actual performance of all aspects of the surgical procedure including patient positioning, hemostasis, tissue retraction, instrument management and wound closure. I attest to the content of the Intraoperative Record and any orders documented therein. Any exceptions are noted below.
[2021-02-19 18:56] LABS: Basophils # (auto) 0.01 K/uL (0-0.2); Basophils % (auto) 0.1 %; Eosinophils # (auto) 0.06 K/uL (0-0.5); Eosinophils % (auto) 0.4 %; Hematocrit (blood only) 36.5 % (42-52); Hemoglobin 12.3 g/dL (14.0-18.0); Immature Granulocytes # (auto) 0.09 K/uL (0.00-0.02); Immature Granulocytes % (auto) 0.6 %; Lymphocytes # (auto) 1.18 K/uL (1.2-3.4); Lymphocytes % (auto) 7.2 %; Mean Corpuscular Hemoglobin 30.8 pg (25-34); Mean Corpuscular Volume 91.3 fL (80-100); Mean Platelet Volume 8.6 fL (7.4-10.4); Monocytes # (auto) 0.49 K/uL (0.11-0.59); Neutrophils # (auto) 14.49 K/uL (1.4-6.5); Neutrophils % (auto) 88.7 %; Platelet Count 198 K/uL (130-400); RDW Coefficient of Variation 14.1 % (11.5-14.5); RDW Standard Deviation 46.4 fL (36.4-46.3); White Blood Count 16.32 K/uL (4.8-10.8)
[2021-02-19 18:58] LABS: Mean Corpuscular Hgb Conc 33.7 g/dL (32-36)
--- NOTE | 2021-02-19 19:18 | XRay Report ---
XR femur LT 2V routine CLINICAL HISTORY: S/P LEFT HIP ORIF COMPARISON: Left femur radiographs February 18, 2021. FINDINGS: Alignment of the left hip arthroplasty is anatomic. Revision hip arthroplasty is noted wit h longstem femoral component. There are multiple cerclage wires. Wires fixate the previously describe d periprosthetic fracture which appears in anatomic alignment. Acetabular screw is noted. Skin staple s are present. IMPRESSION: Expected findings following revision left hip arthroplasty with longstem femoral componen t and placement of cerclage wires which fixate the periprosthetic fracture which is in anatomic align ment. ACT 112: Negative or not required by law. Electronically signed by: Kiko Cameron M.D. 02/19/2021 7:17 PM
[2021-02-19 19:44] LABS: BUN Creatinine Ratio 16.8 (10-20); Calcium 8.1 mg/dl (8.5-10.1); Creatinine Clr Calc Pharmacy 103.6 ml/min; Est GFR (African American) 95.9; Est GFR (Non-African American) 82.7; Potassium 4.7 mmol/L (3.5-5.1)
--- NOTE | 2021-02-19 19:44 | Anesthesiology Progress Note ---
Date of Service February 19, 2021 Anesthesia Post Procedure Vital Signs Vital Signs: Temp Pulse Pulse Resp BP BP Pulse Ox 02/19/21 19:15 98.4 F 77 17 151/59 H 95 02/19/21 19:05 98.4 F 81 18 141/69 H 91 02/19/21 18:55 81 13 148/68 H 92 02/19/21 18:45 81 15 162/83 H 94 02/19/21 18:35 77 12 136/84 94 02/19/21 18:25 86 24 121/67 96 02/19/21 18:18 98.8 F 86 14 124/69 97 02/19/21 08:05 97.7 F 72 16 131/71 94 02/19/21 03:04 95 02/18/21 22:00 98.2 F 76 16 160/71 H 92 Pain Intensity Left Hip: Pain Intensity: 4 Bilateral Head: Pain Intensity: 5 Transfer of Care Handoff Completed per policy Notes Mental Status: alert / awake / arousable and participated in evaluation Patient Amnestic to Procedure: Yes Nausea / Vomiting: adequately controlled Pain: adequately controlled Airway Patency, RR, SpO2: stable & adequate BP & HR: stable & adequate Hydration State: stable & adequate Anesthetic Complications: no major complications apparent and Pt Satisfied with anesthetic care
--- NOTE | 2021-02-19 19:45 | Fluoroscopy Report ---
FL femur LT 2V CLINICAL HISTORY: LEFT ORIF COMPARISON STUDY: CT of the left femur February 16, 2021. FLUOROSCOPY TIME: 14 seconds. FLUOROSCOPIC IMAGES: 4 FINDINGS: Fluoroscopy was provided during revision left hip arthroplasty with placement of a longstem femoral component and cerclage wires. These wires fixate the periprosthetic femoral fracture. Alignm ent appears anatomic. IMPRESSION: Fluoroscopy provided during revision left hip arthroplasty with longstem femoral compone nt and cerclage wires. ACT 112: Negative or not required by law. Electronically signed by: Kiko Cameron M.D. 02/19/2021 7:44 PM
[2021-02-19] MEDS ORDERED: NALOXONE HCL 0.4 MG/1 ML VIAL/CARP IV PRN (20:20)
--- NOTE | 2021-02-19 20:49 | Orthopedic Progress Note ---
Date of Service February 19, 2021 Assessment & Plan (1) Janee-prosthetic femoral shaft fracture: s/p Revision L MARYELLEN - femur, ORIF femur, removal of hardware -ancef/vanco x 24 -DVT ppx: SCDs, TEDs, Lovenox daily -NWB LLE -PT/OT -PO XR demonstrates well aligned well fixed prothesis, anatomic alignment of fracture, cables -am labs Admission and Anticipated Discharge Date Admission Date: February 15, 2021 Subjective Post Operative Progress Note Patient seen in PACU, c/o pain, receiving pain medication, denies complaints, pain well controlled, no acute issues. Review of Systems Review of Systems: All systems reviewed & are unremarkable except as noted in HPI & below Constitutional: as per Subjective / HPI Physical Exam Physical Exam: LLE NVSI +EHL/FHL/TA/GS SILT grossly, +2 DP pulse, compartments soft NT, dressing cdi. HMV drain intact. Constitutional: WD/WN, vitals as above Results & Data ([place]) Vital Signs (Past 12 Hours) Vital Signs Temp Pulse Resp BP Pulse Ox 02/19/21 19:15 36.9 C 77 17 151/59 H 95 02/19/21 19:05 36.9 C 81 18 141/69 H 91 02/19/21 18:55 81 13 148/68 H 92 02/19/21 18:45 81 15 162/83 H 94 02/19/21 18:35 77 12 136/84 94 02/19/21 18:25 86 24 121/67 96 02/19/21 18:18 37.1 C 86 14 124/69 97
[2021-02-19] MEDS: SENNA 8.6 MG TAB PO SCH (20:50)
[2021-02-19] MEDS: DOCUSATE SODIUM/SENNA 50/8.6MG TAB PO SCH (20:50)
[2021-02-19] MEDS: ceFAZolin 3,000 MG in DEXTROSE 5% 50 ML IV SCH (21:49)
[2021-02-20] MEDS ORDERED: VANCOMYCIN HCL 2,000 MG in SODIUM CHLORIDE 0.9% 500 ML IV SCH (02:00)
[2021-02-20] MEDS: oxyCODONE HCL IR 5 MG TAB (IMMEDIATE RELEASE) PO PRN ×5 (04:50→20:36)
[2021-02-20] MEDS: MoRPHine SULFATE 2 MG/ML CARP IV PRN (06:00)
[2021-02-20] MEDS: ceFAZolin 3,000 MG in DEXTROSE 5% 50 ML IV SCH ×2 (06:06→14:06)
[2021-02-20] MEDS ORDERED: PROPOFOL IV EMULSION 10 MG/ML 20 ML VIAL IV ONE (07:02)
[2021-02-20] MEDS ORDERED: ePHEDrine sulfate 50 MG/ML SYR ONE (07:02)
[2021-02-20] MEDS ORDERED: ATROPINE SO4 1 MG/ML 1ML VIAL ONE (07:02)
[2021-02-20] MEDS ORDERED: DEXAMETHASONE SOD INJ 4 MG/ML VIAL ONE (07:02)
[2021-02-20] MEDS ORDERED: SUCCINYLCHOLINE 100MG/5ML SYR IV ONE (07:02)
[2021-02-20] MEDS ORDERED: PHENYLEPHRINE 100MCG/ML 5ML SYR ONE (07:02)
[2021-02-20 07:32] LABS: Hematocrit (blood only) 29.6 % (42-52); Hemoglobin 10.2 g/dL (14.0-18.0); Immature Granulocytes # (auto) 0.03 K/uL (0.00-0.02); Immature Granulocytes % (auto) 0.3 %; Lymphocytes # (auto) 0.49 K/uL (1.2-3.4); Lymphocytes % (auto) 4.2 %; Mean Corpuscular Hgb Conc 34.5 g/dL (32-36); Mean Platelet Volume 8.6 fL (7.4-10.4); Monocytes # (auto) 1.04 K/uL (0.11-0.59); Neutrophils # (auto) 10.01 K/uL (1.4-6.5); Neutrophils % (auto) 86.5 %; Platelet Count 220 K/uL (130-400); RDW Coefficient of Variation 14.1 % (11.5-14.5); RDW Standard Deviation 46.2 fL (36.4-46.3); Red Blood Count 3.29 M/uL (4.7-6.1); White Blood Count 11.57 K/uL (4.8-10.8)
[2021-02-20 08:05] LABS: BUN Creatinine Ratio 22.5 (10-20); Calcium 7.4 mg/dl (8.5-10.1); Creatinine Clr Calc Pharmacy 112.3 ml/min; Est GFR (Non-African American) 86.3; Magnesium 2.1 mg/dl (1.8-2.4); Potassium 4.7 mmol/L (3.5-5.1)
[2021-02-20] MEDS: amLODIPine BESYLATE 5 MG TAB PO SCH (09:12)
[2021-02-20] MEDS: ENOXAPARIN INJ 40 MG/0.4 ML SYR SQ SCH (09:12)
[2021-02-20] MEDS: CHOLECALCIFEROL 1,000 UNITS 25 MCG TAB PO SCH (09:12)
[2021-02-20] MEDS: FLUTICASONE FUROATE 100MCG 14 PUFFS/INHALER INH SCH (09:58)
[2021-02-20] MEDS: UMECLIDINIUM/VILANTEROL 62.5/25MCG 7 PUFFS/INHALER INH SCH (09:58)
[2021-02-20] MEDS: POLYETHYLENE (MIRALAX) 17 GM PACK PO SCH (10:04)
[2021-02-20] MEDS: HYDROmorphone INJ 0.5 MG/0.5 ML SYR IV PRN ×3 (10:04→23:22)
--- NOTE | 2021-02-20 12:29 | Hospitalist Progress Note ---
Date of Service February 20, 2021 Assessment & Plan (1) Fracture of prosthetic hip: S/p Left Total Hip Arthroplasty with Dr. Owens on 02/13/2021. Now with francine-prosthetic fracture. - Pain control - Will decrease period between doses to help. - Consulted orthopedics -> S/p: * Revision Left total hip arthroplasty - femur - Rafael Owens, DO * ORIF left femur * Removal of hardware, femoral prosthesis on 02/19. - EBL was 750 mL per op notes. - Will give iron IV x 3 for acute blood loss anemia. - Post-op care per surgical team. - Good bowel regimen ongoing as he has not wanted to use to the commode due to pain. Willing to start Miralax to help with this. (2) SARS-CoV-2 positive: Patient had COVID-19 in 09/2020. Had multiple negative testing since then. He has also been immunized x2. - Minimal symptoms. Treat symptomatically with cough suppressant PRN. (3) Fall: This appears to be mechanical in nature related to his THR. No dizziness, chest pain or shortness of breath prior to falling to suggest need for further workup. (4) Chronic obstructive pulmonary disease: Continue Trelegy Ellipta or hospital formulary equivalent. - No acute exacerbation (5) Hypertension: BP is 160/70, though in pain. - Continue amlodipine 5mg PO daily (6) BPH (benign prostatic hyperplasia): Notable history of this. Not on medication. Ortiz catheter placed in the ER. - Monitor closely for post-Ortiz catheter urinary retention (7) On home oxygen therapy: Currently at baseline 3L 02. (8) DVT prophylaxis: Lovenox 40 mg SQ daily Admission and Anticipated Discharge Date Admission Date: February 15, 2021 Subjective With 8/10 pain in the surgical site. No BM yet. Only slight cough and minimal sore throat. Reports no fevers/chills, chest pain, shortness of breath, abdominal pain, nausea, or vomiting. Physical Exam Constitutional: WD/WN, vitals as above + acute distress Eyes: EOM intact bilaterally; no conjunctival abnormality ENMT: external ear and nose normal, oropharynx normal Neck: trachea midline, no thyromegaly normal visual inspection Respiratory: normal respiratory effort, lungs clear to auscultation no respiratory distress Cardiovascular: RRR, no murmur, no edema Gastrointestinal (Abdomen): Inspection/Auscultation: abdomen normal to inspection; abdomen not distended Musculoskeletal: no cyanosis or clubbing, extremities motor strength 5/5 Extremities: + extremities abnormal to inspection (Left hip/thigh bandaged with drain present) Skin: no rashes, warm and dry Neurologic: moves all extremities and awake Psychiatric: Orientation: alert, oriented to person and cooperative Results & Data Results & Data ([facility]) Vital Signs (Past 12 Hours) Vital Signs Temp Pulse Pulse Pulse Resp BP BP 02/20/21 10:57 36.7 C 76 18 02/20/21 07:50 36.9 C 72 18 02/20/21 06:00 73 11 L 02/20/21 05:00 73 6 L 02/20/21 04:00 70 12 02/20/21 03:31 36.6 C 76 12 138/59 L 02/20/21 03:30 74 15 138/59 L 02/20/21 03:00 76 14 02/20/21 02:00 78 21 02/20/21 01:45 76 02/20/21 01:00 73 12 BP Pulse Ox 02/20/21 10:57 158/71 H 92 02/20/21 07:50 127/57 L 91 02/20/21 06:00 93 02/20/21 05:00 93 02/20/21 04:00 94 02/20/21 03:31 93 02/20/21 03:30 96 02/20/21 03:00 95 02/20/21 02:00 95 02/20/21 01:45 02/20/21 01:00 95 PG Care Time/CCT Total # of Minutes Spent Total Time Spent with Patient: Total time spent is greater than 50% in coordination of care (as documented) at patient's floor/unit and/or counseling patient: Coding Level of Care Code 59012 Subseq Hosp Care Lvl 3 Diagnoses Fracture of prosthetic hip T84.019A; Z96.649 Encounter type: initial encounter SARS-CoV-2 positive U07.1 Fall W19.XXXA Encounter type: initial encounter Chronic obstructive pulmonary disease J44.9 COPD type: unspecified COPD Hypertension I10 BPH (benign prostatic hyperplasia) N40.0 Lower urinary tract symptom presence: symptoms absent On home oxygen therapy Z99.81 DVT prophylaxis Z29.9 (1) Fracture of prosthetic hip Encounter type: initial encounter Qualified Code(s): T84.019A - Broken internal joint prosthesis, unspecified site, initial encounter; Z96.649 - Presence of unspecified artificial hip joint (2) Fall Encounter type: initial encounter Qualified Code(s): W19.XXXA - Unspecified fall, initial encounter (3) Chronic obstructive pulmonary disease COPD type: unspecified COPD Qualified Code(s): J44.9 - Chronic obstructive pulmonary disease, unspecified (4) BPH (benign prostatic hyperplasia) Lower urinary tract symptom presence: symptoms absent Qualified Code(s): N40.0 - Benign prostatic hyperplasia without lower urinary tract symptoms
[2021-02-20] MEDS: IRON SUCROSE 300 MG in SODIUM CHLORIDE 0.9% 250 ML IV SCH (14:07)
--- NOTE | 2021-02-20 17:49 | Orthopedic Progress Note ---
Date of Service February 20, 2021 Assessment & Plan (1) Janee-prosthetic femoral shaft fracture: s/p Revision L MARYELLEN - femur, ORIF femur, removal of hardware POD#1 -ancef/vanco x 24 -DVT ppx: SCDs, TEDs, Lovenox daily -Foot flat NWB LLE -PT/OT -PO XR demonstrates well aligned well fixed prothesis, anatomic alignment of fracture, cables -am labs - as above, hgb 10.2 -HMV drain - 100/100cc Admission and Anticipated Discharge Date Admission Date: February 15, 2021 Subjective Post Operative Progress Note Patient seen sitting up in bed, comfortable, denies complaints, pain improving, no acute issues. Review of Systems Review of Systems: All systems reviewed & are unremarkable except as noted in HPI & below Constitutional: as per Subjective / HPI Physical Exam Physical Exam: LLE NVSI +EHL/FHL/TA/GS SILT grossly, +2 DP pulse, compartments soft NT, dressing cdi. Constitutional: WD/WN, vitals as above Results & Data ([place]) Vital Signs (Past 12 Hours) Vital Signs Temp Pulse Pulse Resp BP BP Pulse Ox 02/20/21 16:32 36.8 C 79 18 137/65 91 02/20/21 10:57 36.7 C 76 18 158/71 H 92 02/20/21 07:50 36.9 C 72 18 127/57 L 91 02/20/21 06:00 73 11 L 93 Laboratory Results 02/20/21 02/20/21 02/19/21 Range/Units 06:58 06:58 18:48 WBC 11.57 H (4.8-10.8) K/uL RBC 3.29 L (4.7-6.1) M/uL Hgb 10.2 L (14.0-18.0) g/dL POC Hgb (14.0-18.0) g/dl Hct 29.6 L (42-52) % POC Hct (42-52) % MCV 90.0 (80-100) fL MCH 31.0 (25-34) pg MCHC 34.5 (32-36) g/dL RDW Std Deviation 46.2 (36.4-46.3) fL RDW Coeff of Richie 14.1 (11.5-14.5) % Plt Count 220 (130-400) K/uL MPV 8.6 (7.4-10.4) fL Immature Gran % (Auto) 0.3 % Neut % (Auto) 86.5 % Lymph % (Auto) 4.2 % [place] % (Auto) 9.0 % Eos % (Auto) 0.0 % Baso % (Auto) 0.0 % Neut # (Auto) 10.01 H (1.4-6.5) K/uL Lymph # (Auto) 0.49 L (1.2-3.4) K/uL Rush # (Auto) 1.04 H (0.11-0.59) K/uL Eos # (Auto) 0.00 (0-0.5) K/uL Baso # (Auto) 0.00 (0-0.2) K/uL Immature Gran # (Auto) 0.03 H (0.00-0.02) K/uL POC Sodium (135-144) mmol/L Sodium 135 L 137 (136-145) mmol/L POC Potassium (3.3-5.0) mmol/L Potassium 4.7 4.7 (3.5-5.1) mmol/L POC Chloride (101-112) mmol/L Chloride 103 104 (98-107) mmol/L Carbon Dioxide 30 27 (21-32) mmol/L POC Total CO2 (24-31) mmol/L Anion Gap 2.0 L 6.0 (3-11) POC Anion Gap (16-25) mmol/L POC BUN (7-18) mg/dl BUN 19 H 15 (7-18) mg/dl Creatinine 0.84 0.91 (0.6-1.4) mg/dl POC Creatinine (0.6-1.3) mg/dl Est Cr Clr Drug Dosing 112.3 103.6 ml/min Est GFR ( Amer) 100.0 95.9 Est GFR (Non-Af Amer) 86.3 82.7 BUN/Creatinine Ratio 22.5 H 16.8 (10-20) Glucose 146 H 140 H (70-99) mg/dl POC Glucose (other) (70-99) mg/dl Calcium 7.4 L 8.1 L (8.5-10.1) mg/dl POC Ioniz Calcium [place] (1.12-1.32) mmol/l Magnesium 2.1 (1.8-2.4) mg/dl Blood Type Antibody Screen Crossmatch 02/19/21 02/19/21 02/19/21 Range/Units 18:48 17:23 05:25 WBC 16.32 H (4.8-10.8) K/uL RBC 4.00 L (4.7-6.1) M/uL Hgb 12.3 L (14.0-18.0) g/dL POC Hgb 10.2 L (14.0-18.0) g/dl Hct 36.5 L (42-52) % POC Hct 30 L (42-52) % MCV 91.3 (80-100) fL MCH 30.8 (25-34) pg MCHC 33.7 (32-36) g/dL RDW Std Deviation 46.4 H (36.4-46.3) fL RDW Coeff of Richie 14.1 (11.5-14.5) % Plt Count 198 (130-400) K/uL MPV 8.6 (7.4-10.4) fL Immature Gran % (Auto) 0.6 % Neut % (Auto) 88.7 % Lymph % (Auto) 7.2 % Rush % (Auto) 3.0 % Eos % (Auto) 0.4 % Baso % (Auto) 0.1 % Neut # (Auto) 14.49 H (1.4-6.5) K/uL Lymph # (Auto) 1.18 L (1.2-3.4) K/uL Rush # (Auto) 0.49 (0.11-0.59) K/uL Eos # (Auto) 0.06 (0-0.5) K/uL Baso # (Auto) 0.01 (0-0.2) K/uL Immature Gran # (Auto) 0.09 H (0.00-0.02) K/uL POC Sodium 132 L (135-144) mmol/L Sodium (136-145) mmol/L POC Potassium 7.0 H* (3.3-5.0) mmol/L Potassium (3.5-5.1) mmol/L POC Chloride 98 L (101-112) mmol/L Chloride (98-107) mmol/L Carbon Dioxide (21-32) mmol/L POC Total CO2 36 H (24-31) mmol/L Anion Gap (3-11) POC Anion Gap 6.0 L (16-25) mmol/L POC BUN 18 (7-18) mg/dl BUN (7-18) mg/dl Creatinine (0.6-1.4) mg/dl POC Creatinine 0.9 (0.6-1.3) mg/dl Est Cr Clr Drug Dosing ml/min Est GFR ( Amer) Est GFR (Non-Af Amer) BUN/Creatinine Ratio (10-20) Glucose (70-99) mg/dl POC Glucose (other) 151 H (70-99) mg/dl Calcium (8.5-10.1) mg/dl POC Ioniz Calcium Pipo 1.10 L (1.12-1.32) mmol/l Magnesium (1.8-2.4) mg/dl Blood Type A Positive Antibody Screen NEGATIVE Crossmatch See Detail
[2021-02-20] MEDS: DOCUSATE SODIUM/SENNA 50/8.6MG TAB PO SCH (23:10)
[2021-02-21] MEDS: oxyCODONE HCL IR 5 MG TAB (IMMEDIATE RELEASE) PO PRN ×7 (00:45→21:09)
[2021-02-21] MEDS: SENNA 8.6 MG TAB PO SCH (01:26)
[2021-02-21 06:30] LABS: Basophils # (auto) 0.01 K/uL (0-0.2); Basophils % (auto) 0.1 %; Eosinophils # (auto) 0.23 K/uL (0-0.5); Eosinophils % (auto) 2.3 %; Hematocrit (blood only) 26.8 % (42-52); Hemoglobin 9.1 g/dL (14.0-18.0); Immature Granulocytes # (auto) 0.08 K/uL (0.00-0.02); Immature Granulocytes % (auto) 0.8 %; Lymphocytes # (auto) 1.22 K/uL (1.2-3.4); Lymphocytes % (auto) 12.4 %; Mean Corpuscular Hemoglobin 30.7 pg (25-34); Mean Corpuscular Volume 90.5 fL (80-100); Mean Platelet Volume 8.3 fL (7.4-10.4); Monocytes # (auto) 1.24 K/uL (0.11-0.59); Monocytes % (auto) 12.6 %; Neutrophils # (auto) 7.04 K/uL (1.4-6.5); Neutrophils % (auto) 71.8 %; Platelet Count 233 K/uL (130-400); RDW Coefficient of Variation 14.3 % (11.5-14.5); Red Blood Count 2.96 M/uL (4.7-6.1); White Blood Count 9.82 K/uL (4.8-10.8)
[2021-02-21 07:07] LABS: BUN Creatinine Ratio 23.6 (10-20); Calcium 7.6 mg/dl (8.5-10.1); Creatinine Clr Calc Pharmacy 119.4 ml/min; Est GFR (African American) 102.5; Est GFR (Non-African American) 88.5
[2021-02-21] MEDS: UMECLIDINIUM/VILANTEROL 62.5/25MCG 7 PUFFS/INHALER INH SCH (08:12)
[2021-02-21] MEDS: FLUTICASONE FUROATE 100MCG 14 PUFFS/INHALER INH SCH (08:13)
[2021-02-21] MEDS: POLYETHYLENE (MIRALAX) 17 GM PACK PO SCH ×2 (10:49→21:10)
[2021-02-21] MEDS: IRON SUCROSE 300 MG in SODIUM CHLORIDE 0.9% 250 ML IV SCH (10:49)
[2021-02-21] MEDS: ENOXAPARIN INJ 40 MG/0.4 ML SYR SQ SCH (10:50)
[2021-02-21] MEDS: CHOLECALCIFEROL 1,000 UNITS 25 MCG TAB PO SCH (10:50)
[2021-02-21] MEDS: amLODIPine BESYLATE 5 MG TAB PO SCH (10:50)
--- NOTE | 2021-02-21 12:38 | Orthopedic Progress Note ---
Date of Service February 21, 2021 Assessment & Plan (1) Janee-prosthetic femoral shaft fracture: s/p Revision L MARYELLEN - femur, ORIF femur, removal of hardware POD#2 -ancef/vanco x 24 -DVT ppx: SCDs, TEDs, Lovenox daily -Foot flat NWB LLE -PT/OT -PO XR demonstrates well aligned well fixed prothesis, anatomic alignment of fracture, cables -am labs - as above, hgb 9.1 -HMV drain - 5/155cc, will DC Orthopedically stable Admission and Anticipated Discharge Date Admission Date: February 15, 2021 Subjective Post Operative Progress Note Patient seen sitting up in bed, comfortable, denies complaints, pain continues to improve each day, no acute issues. Review of Systems Review of Systems: All systems reviewed & are unremarkable except as noted in HPI & below Constitutional: as per Subjective / HPI Physical Exam Physical Exam: LLE NVSI +EHL/FHL/TA/GS SILT grossly, +2 DP pulse, compartments soft NT, dressing cdi. Constitutional: WD/WN, vitals as above Results & Data ([place]) Vital Signs (Past 12 Hours) Vital Signs Temp Pulse Resp BP BP Pulse Ox 02/21/21 11:22 36.7 C 72 18 156/67 H 95 02/21/21 10:59 36.5 C 76 16 145/70 H 95 02/21/21 04:53 36.8 C 73 18 148/65 H 93 Laboratory Results 02/21/21 02/21/21 02/19/21 Range/Units 05:36 05:36 05:25 WBC 9.82 (4.8-10.8) K/uL RBC 2.96 L (4.7-6.1) M/uL Hgb 9.1 L (14.0-18.0) g/dL Hct 26.8 L (42-52) % MCV 90.5 (80-100) fL MCH 30.7 (25-34) pg MCHC 34.0 (32-36) g/dL RDW Std Deviation 47.0 H (36.4-46.3) fL RDW Coeff of Richie 14.3 (11.5-14.5) % Plt Count 233 (130-400) K/uL MPV 8.3 (7.4-10.4) fL Immature Gran % (Auto) 0.8 % Neut % (Auto) 71.8 % Lymph % (Auto) 12.4 % [place] % (Auto) 12.6 % Eos % (Auto) 2.3 % Baso % (Auto) 0.1 % Neut # (Auto) 7.04 H (1.4-6.5) K/uL Lymph # (Auto) 1.22 (1.2-3.4) K/uL [place] # (Auto) 1.24 H (0.11-0.59) K/uL Eos # (Auto) 0.23 (0-0.5) K/uL Baso # (Auto) 0.01 (0-0.2) K/uL Immature Gran # (Auto) 0.08 H (0.00-0.02) K/uL Sodium 136 (136-145) mmol/L Potassium 4.0 (3.5-5.1) mmol/L Chloride 102 (98-107) mmol/L Carbon Dioxide 29 (21-32) mmol/L Anion Gap 5.0 (3-11) BUN 19 H (7-18) mg/dl Creatinine 0.79 (0.6-1.4) mg/dl Est Cr Clr Drug Dosing 119.4 ml/min Est GFR ( Amer) 102.5 Est GFR (Non-Af Amer) 88.5 BUN/Creatinine Ratio 23.6 H (10-20) Glucose 113 H (70-99) mg/dl Calcium 7.6 L (8.5-10.1) mg/dl Blood Type A Positive Antibody Screen NEGATIVE Crossmatch See Detail
[2021-02-21] MEDS: LACTATED RINGER'S 1,000 ML IV SCH (12:53)
[2021-02-21] MEDS: ACETAMINOPHEN 500 MG TAB PO PRN (12:55)
[2021-02-21] MEDS: DOCUSATE SODIUM/SENNA 50/8.6MG TAB PO SCH (21:10)
--- NOTE | 2021-02-21 21:26 | Hospitalist Progress Note ---
Date of Service February 21, 2021 Assessment & Plan (1) Fracture of prosthetic hip: S/p Left Total Hip Arthroplasty with Dr. Owens on 02/13/2021. Now with francine-prosthetic fracture. - Pain control - Will decrease period between doses to help. - Consulted orthopedics -> S/p: * Revision Left total hip arthroplasty - femur - Rafael Owens, DO * ORIF left femur * Removal of hardware, femoral prosthesis on 02/19. - EBL was 750 mL per op notes. - Will give iron IV x 3 for acute blood loss anemia. hEMOGLOBIN IS STABLE. Will recheck in AM. - Post-op care per surgical team. - Good bowel regimen ongoing as he has not wanted to use to the commode due to pain. -will increase miralax to BID. If no bowel movement, will consider relistor Nurse reports pain has not been controlled and ortho suggested pain medicine consult. (2) SARS-CoV-2 positive: Patient had COVID-19 in 09/2020. Had multiple negative testing since then. He has also been immunized x2. - Minimal symptoms. Treat symptomatically with cough suppressant PRN. (3) Fall: This appears to be mechanical in nature related to his THR. No dizziness, chest pain or shortness of breath prior to falling to suggest need for further workup. (4) Chronic obstructive pulmonary disease: Continue Trelegy Ellipta or hospital formulary equivalent. - No acute exacerbation (5) Hypertension: BP is 160/70, though in pain. - Continue amlodipine 5mg PO daily (6) BPH (benign prostatic hyperplasia): Notable history of this. Not on medication. Ortiz catheter placed in the ER. - Monitor closely for post-Ortiz catheter urinary retention (7) On home oxygen therapy: Currently at baseline 3L 02. (8) DVT prophylaxis: Lovenox 40 mg SQ daily Admission and Anticipated Discharge Date Admission Date: February 15, 2021 Subjective PATIENT REPORTS NOT HAVING A bm OF YET. HE STATES IT HAS BEEN OVER 10 DAYS SINCE HIS LAST BM Review of Systems Review of Systems: All systems reviewed & are unremarkable except as noted in HPI & below Physical Exam Physical Exam: Constitutional: WD/WN, vitals as above + acute distress Eyes: EOM intact bilaterally; no conjunctival abnormality ENMT: external ear and nose normal, oropharynx normal Neck: trachea midline, no thyromegaly normal visual inspection Respiratory: normal respiratory effort, lungs clear to auscultation no respiratory distress Cardiovascular: RRR, no murmur, no edema Gastrointestinal (Abdomen): Inspection/Auscultation: abdomen normal to inspection; abdomen not distended Musculoskeletal: no cyanosis or clubbing, extremities motor strength 5/5 Extremities: + extremities abnormal to inspection (Left hip/thigh bandaged with drain present) Skin: no rashes, warm and dry Neurologic: moves all extremities and awake Psychiatric: Orientation: alert, oriented to person and cooperative Results & Data Results & Data ([facility]) Vital Signs (Past 12 Hours) Vital Signs Temp Pulse Resp BP BP Pulse Ox 02/21/21 18:00 36.8 C 76 18 145/65 H 92 02/21/21 13:08 94 02/21/21 12:58 36.6 C 73 14 135/66 93 02/21/21 11:22 36.7 C 72 18 156/67 H 95 02/21/21 10:59 36.5 C 76 16 145/70 H 95 PG Care Time/CCT Total # of Minutes Spent Total Time Spent with Patient: Total time spent is greater than 50% in cook apprentice rdination of care (as documented) at patient's floor/unit and/or counseling patient: Coding Level of Care Code 86203 Subseq Hosp Care Lvl 3 Diagnoses Fracture of prosthetic hip T84.019A; Z96.649 Encounter type: initial encounter SARS-CoV-2 positive U07.1 Fall W19.XXXA Encounter type: initial encounter Chronic obstructive pulmonary disease J44.9 COPD type: unspecified COPD Hypertension I10 BPH (benign prostatic hyperplasia) N40.0 Lower urinary tract symptom presence: symptoms absent On home oxygen therapy Z99.81 DVT prophylaxis Z29.9 Time Spent (min) 35 (1) BPH (benign prostatic hyperplasia) Lower urinary tract symptom presence: symptoms absent Qualified Code(s): N40.0 - Benign prostatic hyperplasia without lower urinary tract symptoms (2) Fracture of prosthetic hip Encounter type: initial encounter Qualified Code(s): T84.019A - Broken internal joint prosthesis, unspecified site, initial encounter; Z96.649 - Presence of unspecified artificial hip joint (3) Chronic obstructive pulmonary disease COPD type: unspecified COPD Qualified Code(s): J44.9 - Chronic obstructive pulmonary disease, unspecified (4) Fall Encounter type: initial encounter Qualified Code(s): W19.XXXA - Unspecified fall, initial encounter
[2021-02-22] MEDS: oxyCODONE HCL IR 5 MG TAB (IMMEDIATE RELEASE) PO PRN ×4 (00:34→20:49)
[2021-02-22] MEDS: ACETAMINOPHEN 500 MG TAB PO PRN ×2 (03:15→19:47)
[2021-02-22 06:26] LABS: Basophils # (auto) 0.02 K/uL (0-0.2); Basophils % (auto) 0.2 %; Eosinophils # (auto) 0.31 K/uL (0-0.5); Eosinophils % (auto) 2.8 %; Hematocrit (blood only) 26.8 % (42-52); Hemoglobin 8.8 g/dL (14.0-18.0); Immature Granulocytes % (auto) 0.9 %; Lymphocytes # (auto) 1.11 K/uL (1.2-3.4); Lymphocytes % (auto) 9.9 %; Mean Corpuscular Hemoglobin 30.4 pg (25-34); Mean Corpuscular Hgb Conc 32.8 g/dL (32-36); Mean Corpuscular Volume 92.7 fL (80-100); Mean Platelet Volume 8.3 fL (7.4-10.4); Monocytes # (auto) 1.26 K/uL (0.11-0.59); Monocytes % (auto) 11.2 %; Neutrophils # (auto) 8.44 K/uL (1.4-6.5); Platelet Count 250 K/uL (130-400); RDW Coefficient of Variation 14.2 % (11.5-14.5); RDW Standard Deviation 46.9 fL (36.4-46.3); Red Blood Count 2.89 M/uL (4.7-6.1); White Blood Count 11.24 K/uL (4.8-10.8)
[2021-02-22] MEDS: POLYETHYLENE (MIRALAX) 17 GM PACK PO SCH ×2 (08:28→20:50)
[2021-02-22] MEDS: CHOLECALCIFEROL 1,000 UNITS 25 MCG TAB PO SCH (08:29)
[2021-02-22] MEDS: IRON SUCROSE 300 MG in SODIUM CHLORIDE 0.9% 250 ML IV SCH (08:29)
[2021-02-22] MEDS: FLUTICASONE FUROATE 100MCG 14 PUFFS/INHALER INH SCH (08:29)
[2021-02-22] MEDS: amLODIPine BESYLATE 5 MG TAB PO SCH (08:29)
[2021-02-22] MEDS: ENOXAPARIN INJ 40 MG/0.4 ML SYR SQ SCH (08:29)
[2021-02-22] MEDS: UMECLIDINIUM/VILANTEROL 62.5/25MCG 7 PUFFS/INHALER INH SCH (08:29)
--- NOTE | 2021-02-22 09:56 | Pain Management Consultation ---
Date of Consultation February 22, 2021 Assessment & Plan (1) Janee-prosthetic femoral shaft fracture: History of Present Illness Reason for Consultation: Left lower extremity pain status post ORIF of periprosthetic femoral shaft fracture Requesting Physician: David Peterson MD Attending Physician: David Peterson History of Present Illness Mr. Jacobson is a 75-year-old white male who underwent a left MARYELLEN on 02/13/2021 and subsequently developed a left periprosthetic femoral shaft fracture the day after discharge and was readmitted and underwent ORIF on 02/19/2021. The patient has been having ongoing difficulties with pain in the left lateral hip and thigh to the level of the knee since the time of his surgical procedure. He has been utilizing OxyIR 60-70 mg in a 24-hour period with reported poor pain control. The patient has had difficulty participating in PT/OT activities due to the pain and discomfort peer describes the pain as aching, burning and occasionally sharp in the lateral hip extending to the lateral thigh stopping at the level of the knee. His pain is minimal while sedentary at a 1-2/10. Patient escalates his pain to an 8-9/10 with movement. Patient feels OxyIR has been relatively ef fective with minimal side effects. He has not utilized OxyIR in greater than 9 hours this morning. The patient has been experiencing difficulties constipation and has finally moved his bowels early this morning. He has had some discomfort in the rectal area with his large bowel movement. He denies any axial low back pain or lower extremity radicular pain at this time. Patient offers no further constitutional complaints. Consultation was completed via telephone as the patient is currently Covid positive. Plan of care discussed with Dr. Rufina Torres. Pain Assessment Full Body Front + Back: 1. Left lateral hip and thigh Pain scale - at its best (0-10): 1 Pain scale - at its worst (0-10): 9 Allergies Allergy/AdvReac Type Severity Reaction Status Date / Time atorvastatin AdvReac Intermediate Myalgia Verified 02/15/21 17:07 Home Medications Medication Instructions Recorded Confirmed Type amlodipine 5 mg PO QAM #0 12/08/14 02/15/21 History cholecalciferol (vitamin D3) 2,000 unit PO QAM 90 Days #90 cap 11/22/15 02/15/21 History Trelegy Ellipta 1 inh INHALATION QAM 12/31/20 04/01/21 History aspirin 81 mg PO BID #56 tab 02/13/21 02/15/21 Rx acetaminophen 1,000 mg PO Q8H PRN 02/15/21 02/15/21 History albuterol sulfate [ProAir HFA] 1 puff INHALATION QID PRN 02/15/21 02/15/21 History levocetirizine 5 mg PO QAM 02/15/21 02/15/21 History potassium 198 mg PO BID 02/15/21 02/15/21 History sennosides [Senokot] 17.2 mg PO HS PRN 02/15/21 02/15/21 History enoxaparin 40 mg SUBCUT Q24H #25 ml 02/23/21 Rx hydrocortisone [Anusol-HC] 1 applic MN Q12H PRN #30 g 02/23/21 Rx hydrocortisone acetate [Anucort-HC] 25 mg MN BID #28 ea 02/23/21 Rx oxycodone 5 mg PO Q6H PRN #30 tab 02/23/21 Rx polyethylene glycol 3350 [Miralax] 17 g PO BID PRN #30 ea 02/23/21 Rx sennosides-docusate sodium 2 tab PO HS #60 tab 02/23/21 Rx [Senokot-S] Pain History Pain Intensity Pain scale - at its best (0-10): 1 Pain scale - at its worst (0-10): 9 Patient History Medical History BPH (benign prostatic hyperplasia) Chronic back pain Chronic obstructive pulmonary disease stable History of COVID-19 dx 09/28/20 ([facility]), body aches, dyspnea, mild fever > recovered to baseline Hypertension Obesity On home oxygen therapy 3L/MIN NC PRN (uses often) Osteoarthritis Surgical History H/O colonoscopy H/O hemorrhoidectomy History of cardiac cath 2012 (for abnormal stress test) > no stents History of herniorrhaphy History of repair of rotator cuff Left History of tooth extraction History of total hip arthroplasty R MARYELLEN, plus revision Previous back surgery L2-L3 decompression/fusion L1-L2 decomp, T12-L2 fusion (2015) S/P hip replacement S/P TURP Social History Smoking Status: Former smoker Tobacco Type: Cigarettes Cigarettes Per Day: Quit 2007.; Second Hand Exposure: No; Hx Alcohol Use: Yes Alcohol type: beer Hx Substance Use: No Preferred Language: Amharic Communication Ability: Effective Balance Truer Required: No Beliefs That Will Affect Care: None marital status: Current Living Situation: Spouse Feels Safe at Home: Yes Assistive Devices: Glasses and Oxygen - Continuous Physical Exam Physical Exam: General: Mr. Jacobson was communicated with via telephone effectively. Patient reported no acute distress. Speech and thought process was appropriate. His cognition was intact. Results ([facility]) Diagnostic Review Radiology: reports reviewed Radiology Findings: [facility], [id number] XRay Report Patient: CRISTAL JACOBSON AAdmit Date: 02/15/21#: [id number]: [id number] [facility] ID:[id number]: Date: [address] [place] [address] Zip: [place], [place] [address]Dkr: 75Location: 3ESex: MRoom/Bed: [id number] Phy: Kaushik Lawson, CARLITOiagnosis: PERIPROSTHETIC FRACTURE DIZZINESSPri Phy: Julieta Humphries M.D.Service Date: 02/19/21Fa Phy:Interpreting Phy: Kiko Cameron MDAdmit Phy: Yinka Oswald MD Ordering Phy: Rafael Owens D.O. cc: ~ XR femur LT 2V routine CLINICAL HISTORY: S/P LEFT HIP ORIF COMPARISON: Left femur radiographs February 18, 2021. FINDINGS: Alignment of the left hip arthroplasty is anatomic. Revision hip arthroplasty is noted with longstem femoral component. There are multiple cerclage wires. Wires fixate the previously described periprosthetic fracture which appears in anatomic alignment. Acetabular screw is noted. Skin sloan are present. IMPRESSION: Expected findings following revision left hip arthroplasty with longstem femoral component and placement of cerclage wires which fixate the periprosthetic fracture which is in anatomic alignment. ACT 112: Negative or not required by law. Electronically signed by: Kiko Cameron M.D. 02/19/2021 7:17 PM Dictated: 02/19/211914Transcribed: 02/19/211914
--- NOTE | 2021-02-22 12:42 | Hospitalist Progress Note ---
Date of Service February 22, 2021 Assessment & Plan (1) Fracture of prosthetic hip: S/p Left Total Hip Arthroplasty with Dr. Owens on 02/13/2021. Now with francine-prosthetic fracture. - Pain control - Will decrease period between doses to help. - Consulted orthopedics -> S/p: * Revision Left total hip arthroplasty - femur - Rafael Owens, DO * ORIF left femur * Removal of hardware, femoral prosthesis on 02/19. - EBL was 750 mL per op notes. - received iron IV x 3 for acute blood loss anemia. HEMOGLOBIN IS STABLE. - Post-op care per surgical team. - Good bowel regimen ongoing as he has not wanted to use to the commode due to pain. -Patient had a BM after miralax increased to BID. Pain is better controlled. (2) SARS-CoV-2 positive: Patient had COVID-19 in 09/2020. Had multiple negative testing since then. He has also been immunized x2. - Minimal symptoms. Treat symptomatically with cough suppressant PRN. (3) Fall: This appears to be mechanical in nature related to his THR. No dizziness, chest pain or shortness of breath prior to falling to suggest need for further workup. (4) Chronic obstructive pulmonary disease: Continue Iora Healthta or hospital formulary equivalent. - No acute exacerbation (5) Hypertension: BP is 160/70, though in pain. - Continue amlodipine 5mg PO daily (6) BPH (benign prostatic hyperplasia): Notable history of this. Not on medication. Ortiz catheter placed in the ER. - Monitor closely for post-Ortiz catheter urinary retention (7) On home oxygen therapy: Currently at baseline 3L 02. (8) DVT prophylaxis: Lovenox 40 mg SQ daily Admission and Anticipated Discharge Date Admission Date: February 15, 2021 Subjective Patient reports having 2 bowel movements today. Review of Systems Review of Systems: All systems reviewed & are unremarkable except as noted in HPI & below Physical Exam Physical Exam: Constitutional: WD/WN, vitals as above in no acute distress Eyes: EOM intact bilaterally; no conjunctival abnormality ENMT: external ear and nose normal, oropharynx normal Neck: trachea midline, no thyromegaly normal visual inspection Respiratory: normal respiratory effort, lungs clear to auscultation no respiratory distress Cardiovascular: RRR, no murmur, no edema Gastrointestinal (Abdomen): Inspection/Auscultation: abdomen normal to inspection; abdomen not distended Musculoskeletal: no cyanosis or clubbing, extremities motor strength 5/5 Extremities: + extremities abnormal to inspection (Left hip/thigh bandaged with drain present) Skin: no rashes, warm and dry Neurologic: moves all extremities and awake Psychiatric: Orientation: alert, oriented to person and cooperative rectal: normal inspection of anal canal, small hemorrhoid noted palpation Results & Data Results & Data ([facility]) Vital Signs (Past 12 Hours) Vital Signs Temp Pulse Resp BP Pulse Ox 02/22/21 12:26 36.5 C 74 18 155/67 H 92 02/22/21 08:53 36.7 C 77 18 149/71 H 94 PG Care Time/CCT Total # of Minutes Spent Total Time Spent with Patient: Total time spent is greater than 50% in coordin ation of care (as documented) at patient's floor/unit and/or counseling patient: Coding Level of Care Code 06518 Subseq Hosp Care Lvl 2 Diagnoses Fracture of prosthetic hip T84.019A; Z96.649 Encounter type: initial encounter SARS-CoV-2 positive U07.1 Fall W19.XXXA Encounter type: initial encounter Chronic obstructive pulmonary disease J44.9 COPD type: unspecified COPD Hypertension I10 BPH (benign prostatic hyperplasia) N40.0 Lower urinary tract symptom presence: symptoms absent On home oxygen therapy Z99.81 DVT prophylaxis Z29.9 Time Spent (min) 25 (1) BPH (benign prostatic hyperplasia) Lower urinary tract symptom presence: symptoms absent Qualified Code(s): N40.0 - Benign prostatic hyperplasia without lower urinary tract symptoms (2) Fracture of prosthetic hip Encounter type: initial encounter Qualified Code(s): T84.019A - Broken internal joint prosthesis, unspecified site, initial encounter; Z96.649 - Presence of unspecified artificial hip joint (3) Chronic obstructive pulmonary disease COPD type: unspecified COPD Qualified Code(s): J44.9 - Chronic obstructive pulmonary disease, unspecified (4) Fall Encounter type: initial encounter Qualified Code(s): W19.XXXA - Unspecified fall, initial encounter
--- NOTE | 2021-02-22 15:57 | Orthopedic Progress Note ---
Date of Service February 22, 2021 Assessment & Plan (1) Janee-prosthetic femoral shaft fracture: Postop day 3 s/p Revision L MARYELLEN - femur, ORIF femur, removal of hardware POD#2 -DVT ppx: SCDs, TEDs, Lovenox daily -Foot flat NWB LLE -PT/OT -PO XR demonstrates well aligned well fixed prothesis, anatomic alignment of fracture, cables -am labs - as above, hgb 9.1 -HMV drain - 5/155cc, will DC Orthopedically stable at this time. Admission and Anticipated Discharge Date Admission Date: February 15, 2021 Subjective Postop day 3 Patient lying in bed awake and alert. States he is having moderate pain from hemorrhoids. No other complaints at this time. That his leg feels fine and that he almost sat up at the edge of the bed today with physical therapy. He states that his hemorrhoids are more troublesome at this point in time. He is afraid to have a bowel movement because of the hemorrhoids etc. No other complaints at this time. Physical Exam Physical Exam: Incision with some serous drainage noted. No erythema. Suture line is intact. Swelling noted of the left thigh. Calves are soft and nontender. Neurovascular is intact. Toes are mobile. Leg lengths appear equal. Results & Data ([facility]) Vital Signs (Past 12 Hours) Vital Signs Temp Pulse Resp BP Pulse Ox 02/22/21 12:26 36.5 C 74 18 155/67 H 92 02/22/21 08:53 36.7 C 77 18 149/71 H 94
[2021-02-22] MEDS: HYDROCORTISONE ACETATE 25 MG SUPP PR SCH (21:05)
[2021-02-22] MEDS: DOCUSATE SODIUM/SENNA 50/8.6MG TAB PO SCH (21:05)
[2021-02-23] MEDS: oxyCODONE HCL IR 5 MG TAB (IMMEDIATE RELEASE) PO PRN ×3 (03:48→14:49)
[2021-02-23 08:32] LABS: Basophils # (auto) 0.01 K/uL (0-0.2); Basophils % (auto) 0.1 %; Eosinophils # (auto) 0.29 K/uL (0-0.5); Eosinophils % (auto) 3.1 %; Hematocrit (blood only) 27.1 % (42-52); Hemoglobin 8.9 g/dL (14.0-18.0); Immature Granulocytes # (auto) 0.06 K/uL (0.00-0.02); Immature Granulocytes % (auto) 0.6 %; Lymphocytes # (auto) 1.21 K/uL (1.2-3.4); Lymphocytes % (auto) 13.1 %; Mean Corpuscular Hemoglobin 30.6 pg (25-34); Mean Corpuscular Hgb Conc 32.8 g/dL (32-36); Mean Corpuscular Volume 93.1 fL (80-100); Mean Platelet Volume 8.1 fL (7.4-10.4); Monocytes # (auto) 0.92 K/uL (0.11-0.59); Monocytes % (auto) 9.9 %; Neutrophils # (auto) 6.76 K/uL (1.4-6.5); Neutrophils % (auto) 73.2 %; Nucleated RBC # (auto) 0.03 K/uL (0-0); Nucleated RBC % (auto) 0.4 %; Platelet Count 250 K/uL (130-400); RDW Coefficient of Variation 14.4 % (11.5-14.5); RDW Standard Deviation 47.5 fL (36.4-46.3); Red Blood Count 2.91 M/uL (4.7-6.1); White Blood Count 9.25 K/uL (4.8-10.8)
[2021-02-23] MEDS: POLYETHYLENE (MIRALAX) 17 GM PACK PO SCH (09:11)
[2021-02-23] MEDS: ENOXAPARIN INJ 40 MG/0.4 ML SYR SQ SCH (09:12)
[2021-02-23] MEDS: amLODIPine BESYLATE 5 MG TAB PO SCH (09:13)
[2021-02-23] MEDS: CHOLECALCIFEROL 1,000 UNITS 25 MCG TAB PO SCH (09:13)
[2021-02-23] MEDS: UMECLIDINIUM/VILANTEROL 62.5/25MCG 7 PUFFS/INHALER INH SCH (09:15)
[2021-02-23] MEDS: FLUTICASONE FUROATE 100MCG 14 PUFFS/INHALER INH SCH (09:17)
[2021-02-23] MEDS: HYDROCORTISONE ACETATE 25 MG SUPP PR SCH (09:18)
[2021-02-23] MEDS ORDERED: HYDROCORTISONE HC 2.5% CRM 30GM TUBE EXT ONE (10:30)
--- NOTE | 2021-02-26 22:08 | Discharge Summary ---
Date of Service February 23, 2021 Principal Diagnosis Fracture of left prosthetic hip Discharge Exam Constitutional: WD/WN, vitals as above in no acute distress Eyes: EOM intact bilaterally; no conjunctival abnormality ENMT: external ear and nose normal, oropharynx normal Neck: trachea midline, no thyromegaly normal visual inspection Respiratory: normal respiratory effort, lungs clear to auscultation no respiratory distress Cardiovascular: RRR, no murmur, no edema Gastrointestinal (Abdomen): Inspection/Auscultation: abdomen normal to inspection; abdomen not distended Musculoskeletal: no cyanosis or clubbing, extremities motor strength 5/5 Ex tremities: + extremities abnormal to inspection (Left hip/thigh bandaged with drain present) Skin: no rashes, warm and dry Neurologic: moves all extremities and awake Psychiatric: Orientation: alert, oriented to person and cooperative rectal: normal inspection of anal canal, small hemorrhoid noted palpation Discharge Data Allergies Allergy/AdvReac Type Severity Reaction Status Date / Time atorvastatin AdvReac Intermediate Myalgia Verified 02/15/21 17:07 Consultations 02/15/21 17:59 ED Decision to Admit Stat 02/15/21 18:29 Consult Orthopedic Surgery Routine 02/21/21 17:21 Consult Pain Management Routine Procedures Performed Operation Date: 02/19/21 13:55 Actual Procedures p Left Open Reduction Internal Fixation Periprosthetic Femur Fracture with Total Hip Arthropalsty Revision; Removal of Hardware(Left) - Rafael Owens DO Ordered Studies 02/16/21 10:27 CT femur LT wo con Routine 02/19/21 14:00 FL femur LT 2V Routine FL fluoroscopy <1hr Routine Hospital Course (1) Fracture of prosthetic hip: S/p Left Total Hip Arthroplasty with Dr. Owens on 02/13/2021. Now with francine-prosthetic fracture. - Pain control - Will decrease period between doses to help. - Consulted orthopedics -> S/p: * Revision Left total hip arthroplasty - femur - Rafael Owens DO * ORIF left femur * Removal of hardware, femoral prosthesis on 02/19. - EBL was 750 mL per op notes. - received iron IV x 3 for acute blood loss anemia. HEMOGLOBIN IS STABLE. - Post-op care per surgical team. - Good bowel regimen ongoing as he has not wanted to use to the commode due to pain. -Patient had a BM after miralax increased to BID. Pain is better controlled. recommend steroid cream for hemmorhoid. (2) SARS-CoV-2 positive: Patient had COVID-19 in 09/2020. Had multiple negative testing since then. He has also been immunized x2. - Minimal symptoms. Treat symptomatically with cough suppressant PRN. (3) Fall: This appears to be mechanical in nature related to his THR. No dizziness, chest pain or shortness of breath prior to falling to suggest need for further workup. (4) Chronic obstructive pulmonary disease: Continue Trelegy Ellipta or hospital formulary equivalent. - No acute exacerbation (5) Hypertension: BP is 160/70, though in pain. - Continue amlodipine 5mg PO daily (6) BPH (benign prostatic hyperplasia): Notable history of this. Not on medication. Ortiz catheter placed in the ER. - Monitor closely for post-Ortiz catheter urinary retention (7) On home oxygen therapy: Currently at baseline 3L 02. (8) DVT prophylaxis: Lovenox 40 mg SQ daily Total Time Total Time Spent Total Time Spent (In Minutes): 32 Total Time Includes: Examination of the Patient, Discharge Planning and Medication Reconciliation Discharge Plan Discharge Items Patient Disposition: Transfer Residential Fac Reason For Visit: PERIPROSTHETIC FRACTURE DIZZINESS Discharge Diagnosis: Left femur periprosthetic fracture s/p Revision left MARYELLEN, ORIF of the femur Activity: Per Instructions section Weightbearing: Left non-weightbearing Non-emergency contact: Surgeon Call non-emergency contact if: your pain is not controlled, your temperature is above 101.5, your wound has increased redness and your wound has increased drainage Follow-up/Referrals: Julieta Humphries [Primary Care Provider] - Diet: Regular Addtl Attending Provider Instructions: As stated below. Will recommend anusol for hemmorrhoids. If unable to use the suppositories, then please use the cream. Addtl Machinist Brake Provider Instructions: ACTIVITY RECOMMENDATIONS: SELF CARE INSTRUCTIONS AFTER REVISION TOTAL HIP REPLACEMENT Until the incision and soft tissues around your hip have healed, there is a possibility that the hip prosthesis could dislocate. A. Observe the following precautions to prevent dislocation: 1. Don't bend your hip greater than 90 degrees. 2. Avoid crossing your legs or ankles while standing or lying. 3. Sit with your feet placed 6 inches apart. 4. When sitting, keep your knees below your hips. Sit on a firm surface, avoid deep, soft chairs and couches. Use an elevated toilet seat in the bathroom. 5. Don't bend over at the waist. Use a long handled shoehorn and a sock aid to help you put on your shoes and socks. A electrical transmission engineer can help you pickling tank operator objects that are too high or too low to reach. 6. Keep car riding to a minimum for at least one month after surgery. B. Your balance may be shaky for a while. Use crutches or a walker until directed by your doctor. C. Use hand rails when walking on stairs. D. Wear low heeled shoes with non-slip soles. E. Be sure that your floors are free of things that could trip you - throw rugs, electrical cords, small objects. Avoid wet and waxed floors, especially with crutches and canes. F. Try to walk several times a day with rest periods between. G. Continue with all the exercises taught to you in the hospital. Again, make walking a part of your daily routine. SPECIAL CARE INSTRUCTIONS: VERY IMPORTANT TO READ AND REVIEW A. You may still be at risk for phlebitis and blood clots. 1. Wear surgical stockings (MIKE hose) for 2 weeks after surgery to improve circulation and reduce swelling. 2. Take Lovenox 40mg daily for 4 weeks or as directed by your doctor. This is your blood thinner. 3. High risk patients may be prescribed a stronger blood thinner if necessary. 4. If you are on Coumadin normally, your family doctor/microbiology lab analyst should monitor your blood work. Expect a phone call the day of or the day after bloodwork is drawn to adjust your dosage. B. You must take antibiotics before having dental work, bladder, bowel and other surgery. Your doctor will provide you with a permanent card to carry describing precautions. C. Call [facility] if you have a fever, redness or swelling around the incision, cloudy drainage from incision, or sudden increase in pain in your hip, not relieved by your regular pain medication. D. Please call the office at if you have any concerns or questions about your operation or recovery. * YOU MAY SHOWER, NO TUB BATHS UNTIL CLEARED BY YOUR DOCTOR. * WEAR MIKE HOSE 20 HOURS PER DAY FOR 2 WEEKS. * YOU SHOULD USE A WALKER OR CRUTCHES FOR 2-4 WEEKS. THIS WILL HELP PREVENT STRAIN ON YOUR HIP MUSCLE AND ALLOW IT TO HEAL PROPERLY. YOU MAY WEAN TO A CANE TOLERATED. * MOST PATIENTS WILL HAVE HOME NURSING FOR THERAPY. IF YOU DECIDE TO DO OUTPATIENT PHYSICAL THERAPY, PLEASE SCHEDULE THIS 3 TIMES PER WEEK. * Change dressing daily and keep incsion clean and dry at all times, ABDs and tape. FOLLOW UP VISIT: If appointment is not already scheduled: Please call [facility] to make a follow-up appointment for 2 weeks after your surgery at . Pending Studies at Discharge: No Stand-Alone Forms: My [facility] Skilled Items Patient informed of condition?: Yes DNR: No Discharge Level of Care: Acute rehab Communicable Disease: No Discharge Prognosis: Stable Lines: None Urinary Catheter: No Medications and DC Order Prescriptions: New polyethylene glycol 3350 [Miralax] 17 gram Powder In Packet 17 g PO BID PRN (Reason: CONSTIPATION) Qty: 30 RF: 0 sennosides-docusate sodium [Senokot-S] 8.6-50 mg Tablet 2 tab PO HS Qty: 60 RF: 0 hydrocortisone acetate [Anucort-HC] 25 mg Suppository 25 mg AK BID Qty: 28 RF: 0 enoxaparin 40 mg/0.4 mL Syringe 40 mg subcut Q24H Qty: 25 RF: 0 hydrocortisone [Anusol-HC] 2.5 % cream with perineal applicator 1 applic AK Q12H PRN (Reason: IF UNABLE TO TOLERATE THE SUPPOSSITORY ANUSOL) Qty: 30 RF: 0 oxycodone 5 mg Tablet 5 mg PO Q6H PRN (Reason: severe pain) Qty: 30 RF: 0 Continued amlodipine 5 mg Tablet 5 mg PO QAM Qty: 0 RF: 0 cholecalciferol (vitamin D3) 2,000 unit Capsule 2,000 unit PO QAM 90 Days Qty: 90 RF: 3 Trelegy Ellipta 100-62.5-25 mcg Blister With Device 1 inh INHALATION QAM RF: 0 aspirin 81 mg Tablet,Delayed Release (Dr/Ec) 81 mg PO BID Qty: 56 RF: 0 potassium 99 mg Tablet 198 mg PO BID RF: 0 albuterol sulfate [ProAir HFA] 90 mcg/actuation HFA aerosol inhaler 1 puff INHALATION QID PRN (Reason: Shortness Of Breath Or Wheezing) RF: 0 levocetirizine 5 mg tablet 5 mg PO QAM RF: 0 sennosides [Senokot] 8.6 mg tablet 17.2 mg PO HS PRN (Reason: Constipation) RF: 0 acetaminophen 500 mg tablet 1,000 mg PO Q8H PRN (Reason: Fever Or Pain) RF: 0 Discharge Orders: Discharge Order (Routine); Ordered 02/23/21 Ordered By: David Peterson Admission Data Admit Date/Time: 02/15/21 19:08 Attending Provider: David Peterson Admit Provider: Yinka Oswald Primary Care Provider: Julieta Humphries Other Providers: Kaushik Lawson ; Thomas Ken ; Yinka Oswald ; Broderick Perdue ; Rufina Torres Other Interventions: Discharge Summary Assessment (RN) Last Done: 02/23/21 14:14 Coding Level of Care Code D/C Day Management >30 mins Diagnoses Fracture of prosthetic hip T84.019A; Z96.649 Encounter type: initial encounter SARS-CoV-2 positive U07.1 Fall W19.XXXA Encounter type: initial encounter Chronic obstructive pulmonary disease J44.9 COPD type: unspecified COPD Hypertension I10 BPH (benign prostatic hyperplasia) N40.0 Lower urinary tract symptom presence: symptoms absent On home oxygen therapy Z99.81 DVT prophylaxis Z29.9 Time Spent (min) 32
== END 2021-02-23 17:11 | DRG 466 ==
LOC: ED 16:02 → SUATTDRO 19:08 → 3E 19:08 → 2E 02-19 20:08 → 3E 02-20 12:21